=== PATIENT | male | born 1960 | race Caucasian/White ===

== ENCOUNTER 2021-10-24 06:03 | Observation (INO) | payer OTHER ==
--- NOTE | 2021-10-19 13:20 | RAD REPORT ---
EXAM DESCRIPTION: RAD - Chest Pa And Lat (2 Views) - 10/19/2021 1:12 pm CLINICAL HISTORY: Pre op pending hernia surgery COMPARISON: None TECHNIQUE: Frontal and lateral views of the chest were obtained. FINDINGS: The lungs are clear of focal mass or consolidation. Mildly prominent interstitial pattern is seen believed to be baseline for the patient. Heart size is normal and central vasculature is wi thin normal limits. No pleural effusion or pneumothorax seen. Thoracic spine degenerative changes a re present. There are multiple old posterior left rib fractures. No aortic abnormality. IMPRESSION: No acute cardiopulmonary process.
[2021-10-19 14:36] LABS: Absolute Lymphocytes (CBC) 1.4 K/uL (0.7-4.9); Lymphocytes % 22.8 % (15.3-44.8); MCV 90.5 fL (80-100); MPV 7.7 fL (7.6-11.3); RBC Red Blood Cell Count 4.31 M/uL (4.33-5.43)
[2021-10-19 14:51] LABS: Potassium 3.3 mmol/L (3.5-5.1)
[2021-10-19 15:01] LABS: SARS-CoV-2 Antigen Rapid Res Negative (Negative)
--- NOTE | 2021-10-23 08:28 | EKG ---
Test Date: 2021-10-19 Test Time: 12:56:06 Typing Section Chief: LEEANNA MEASUREMENT RESULTS: Intervals: Rate: 77 TX: 174 QRSD: 102 QT: 376 QTc: 425 [place]: P: 30 TX: 174 QRS: -33 T: 41 INTERPRETIVE STATEMENTS: Normal sinus rhythm Left axis deviation Cannot rule out Anterior infarct, age undetermined Abnormal ECG No previous ECG available for comparison Electronically Signed On 10-23-21 08:13:09 CDT by Kareem Fitzgerald
[2021-10-24] MEDS ORDERED: Ringers Lactate 1,000 ML IV ONE (06:15)
[2021-10-24] MEDS ORDERED: FENTANYL CITR 100 MCG/2 ML ONE ×2 (07:05→09:06)
[2021-10-24] MEDS ORDERED: propofoL 200 MG/20 ML VIAL IV ONE (07:05)
[2021-10-24] MEDS ORDERED: KETOROLAC 30 MG/ML INJ ONE (07:06)
[2021-10-24] MEDS ORDERED: LIDOCAINE 2% MPF 5 ML VIAL ONE (07:06)
[2021-10-24] MEDS ORDERED: ROCURONIUM 50 MG/5 ML VIAL IV ONE (07:06)
[2021-10-24] MEDS ORDERED: ONDANSETRON 4 MG/2 ML VIAL ONE (07:06)
[2021-10-24] MEDS ORDERED: dexAMETHasone 10 MG/ML VIAL ONE (07:06)
[2021-10-24] MEDS ORDERED: MIDAZOLAM HCL 2 MG/2 ML INJ ONE (07:06)
[2021-10-24] MEDS ORDERED: ACETAMINOPHEN 500 MG TAB ONE (07:28)
[2021-10-24] MEDS: CEFAZOLIN SODIUM 1 GM/VIAL ONE ×2 (07:38→07:45)
[2021-10-24] MEDS ORDERED: GLYCOPYRROLATE 0.2 MG/ML SYR ONE ×2 (08:33→08:34)
[2021-10-24] MEDS ORDERED: BUPIVACAINE 0.25% PF 10 ML VIAL ONE (09:06)
--- NOTE | 2021-10-24 09:16 | P.BOP ---
Preoperative diagnosis: incisional multiple incarcerated ventral hernias, Postoperative diagnosis: same plus extensive intrabdominal adhesions Primary procedure: 1. Laparoscopic repair multiple incisional mult. incarcerated ventral herni Secondary procedure: with mesh Other procedure(s): 2. Extensive laparoscopic Lysis of adhesions Grinder Set Up Operator External: ELAINA CORREA (BODY MASKER) Estimated blood loss: <20cc Specimen: multiple hernias Findings: epigastric-ventral, mid-ventral and lower ventral hernias Anesthesia: General Complications: None Implants: ventralight ST with echo PS [id number] Transferred to: Recovery Room Condition: Good
[2021-10-24] MEDS ORDERED: HYDROCODONE/APAP 5/325 MG TAB PO PRN (10:26)
[2021-10-24] MEDS ORDERED: SODIUM CHLORIDE 0.9% 10ML INJ IV PRN (10:26)
[2021-10-24] MEDS ORDERED: ONDANSETRON 4 MG/2 ML VIAL IV PRN (10:26)
[2021-10-24] MEDS: HYDROMORPHONE HCL 1 MG/ML INJ IV PRN ×4 (10:48→20:08)
[2021-10-24] MEDS: NA CHLORIDE 0.9% 1,000 ML IV SCH ×2 (11:00→13:10)
[2021-10-24 12:59] VITALS: BMI 32.2
--- OUTSIDE RECORDS SUMMARY | 2021-10-24 13:03 | XMS REPORT | Continuity of Care Document ---
:1960 Author Organization [facility] t Address [address] [place] [address] Care Team Providers Name Role Phone Fay Frye MD Primary Care Physician FAY FRYE Attending Clinician Unavailable Fay Frye MD Attending Clinician Doctor Unassigned, [place] Attending Clinician Unavailable Faizan Walker DO Attending Clinician Jef Selby MD Attending Clinician JEF SELBY Attending Clinician Unavailable [facility] Attending Clinician Unavailable Basil Vance Attending Clinician DENISE LEVI Attending Clinician Unavailable Denise Levi MD Attending Clinician Vale Vásquez MD Attending Clinician Mark Carballo MD Attending Clinician MARK CARBALLO Attending Clinician Unavailable Omayra Salazar PhD Attending Clinician ROEL BARROS Attending Clinician Unavailable Mark Carballo MD Admitting Clinician MARK CARBALLO Admitting Clinician Unavailable ROEL BARROS Admitting Clinician Unavailable Payers Payer Name Policy Type Policy Number Effective Date Expiration Date S ource Problems Condition Condition Condition Status Onset Resolution Last Treating Co mments Source Name Details Category Date Date Treatment Clinician Date Multiple Multiple Disease Active [facility] [place] Morbid Morbid Disease Active [facility] obesity obesity 4-06 [place] Me dical of of Branch 40.0-49.9 40.0-49.9 Morbid Morbid Disease Active [facility] obesity obesity 4-06 [place] with body [place] mass index 00 [place] of of Branch 40.0-49.9 40.0-49.9 Essential Essential Disease Active 2018-03 Uni vers hypertensi hypertensi 03-15 it y of on on 00:00: [place] [facility] Bariatric Bariatric Disease Active 2018-03 Uni vers surgery surgery 03-15 ity of status status 00:00: [place] [facility] No known No known Disease [facility] active [facility] problems problems of Medicin e Allergies, Adverse Reactions, Alerts Allergy Allergy Status Severity Reaction(s) Onset Inactive Treating Comm ents Source Name Type Date Date Clinician NO KNOWN Drug Active [facility] ALLERGIE Class ity of [facility] Social History Social Habit Start Date Stop Date Quantity Comments Source Alcohol intake [facility] History [facility] ge of Alcohol Binge Medicine Exposure to Not sure [facility] SARS-CoV-2 (event) Medica l Branch Tobacco use and 2019-06-14 2019-06-14 Never used [facility] exposure 00:00:00 00:00:00 Medical Branch History [facility] 2018-10-01 2018-10-01 5 [facility] ge of Alcohol Frequency 00:00:00 00:00:00 Medicin e History [facility] 2018-10-01 2018-10-01 1 [facility] ge of Alcohol Std Drinks 00:00:00 00:00:00 Medici ne Sex [birth year] [facility] 00:00:00 00:00:00 Medical Branch Smoking Status Start Date Stop Date Source Never smoker [facility] o f Medicine Unknown if ever smoked [facility] Medications Ordered Filled Start Stop Current Ordering Indication Dosage Frequency Signature Comments Components Source Medication Medication Date Date Medication? Clinician (SIG) Name Name HYDROcodone Yes [id number] 1{tbl} Take 1 Univers -acetaminop 4-20 tablet by ity of hen (NORCO) 00:00: mouth [place] 5-325 mg 00 every Medical tablet evening. Branch ibuprofen 2020-0 Yes [id number] 800mg Take 1 [facility] 800 mg 4-20 tablet by ity of tablet 00:00: mouth [place] 00 every 8 Medical (eight) Branch hours as needed for Pain (scale 1-3) or Pain (scale 4-6). HYDROcodone 2020-0 Yes [id number] 1{tbl} Take 1 Univers -acetaminop 4-20 tablet by ity of hen (NORCO) 00:00: mouth [place] 5-325 mg 00 every Medical tablet evening. Branch ibuprofen 2020-0 Yes [id number] 800mg Take 1 [facility] 800 mg 4-20 tablet by ity of tablet 00:00: mouth [place] 00 every 8 Medical (eight) Branch hours as needed for Pain (scale 1-3) or Pain (scale 4-6). HYDROcodone 2020-0 Yes [id number] 1{tbl} Take 1 Univers -acetaminop 4-20 tablet by ity of hen (NORCO) 00:00: mouth [place] 5-325 mg 00 every Medical tablet evening. Branch ibuprofen 2020-0 Yes [id number] 800mg Take 1 [facility] 800 mg 4-20 tablet by ity of tablet 00:00: mouth [place] 00 every 8 Medical (eight) Branch hours as needed for Pain (scale 1-3) or Pain (scale 4-6). HYDROcodone 2020-0 Yes [id number] 1{tbl} Take 1 Univers -acetaminop 4-20 tablet by ity of hen (NORCO) 00:00: mouth [place] 5-325 mg 00 every Medical tablet evening. Branch ibuprofen 2020-0 Yes [id number] 800mg Take 1 [facility] 800 mg 4-20 tablet by ity of tablet 00:00: mouth [place] 00 every 8 Medical (eight) Branch hours as needed for Pain (scale 1-3) or Pain (scale 4-6). HYDROcodone 2020-0 Yes [id number] 1{tbl} Take 1 Univers -acetaminop 4-20 tablet by ity of hen (NORCO) 00:00: mouth [place] 5-325 mg 00 every Medical tablet evening. Branch ibuprofen 2020-0 Yes [id number] 800mg Take 1 [facility] 800 mg 4-20 tablet by ity of tablet 00:00: mouth [place] 00 every 8 Medical (eight) Branch hours as needed for Pain (scale 1-3) or Pain (scale 4-6). HYDROcodone 2020-0 Yes [id number] 1{tbl} Take 1 Univers -acetaminop 4-20 tablet by ity of hen (NORCO) 00:00: mouth [place] 5-325 mg 00 every Medical tablet evening. Branch ibuprofen 2020-0 Yes [id number] 800mg Take 1 [facility] 800 mg 4-20 tablet by ity of tablet 00:00: mouth [place] 00 every 8 Medical (eight) Branch hours as needed for Pain (scale 1-3) or Pain (scale 4-6). HYDROcodone 2020-0 Yes [id number] 1{tbl} Take 1 Univers -acetaminop 4-20 tablet by ity of hen (NORCO) 00:00: mouth [place] 5-325 mg 00 every Medical tablet evening. Branch ibuprofen 2020-0 Yes [id number] 800mg Take 1 [facility] 800 mg 4-20 tablet by ity of tablet 00:00: mouth [place] 00 every 8 Medical (eight) Branch hours as needed for Pain (scale 1-3) or Pain (scale 4-6). HYDROcodone 2020-0 Yes [id number] 1{tbl} Take 1 Univers -acetaminop 4-20 tablet by ity of hen (NORCO) 00:00: mouth [place] 5-325 mg 00 every Medical tablet evening. Branch ibuprofen 2020-0 Yes [id number] 800mg Take 1 Univers 800 mg 4-20 tablet by ity of tablet 00:00: mouth [place] 00 every 8 Medical (eight) Branch hours as needed for Pain (scale 1-3) or Pain (scale 4-6). HYDROcodone 2020-0 Yes [id number] 1{tbl} Take 1 Univers -acetaminop 4-20 tablet by ity of hen (NORCO) 00:00: mouth [place] 5-325 mg 00 every Medical tablet evening. Branch ibuprofen 2020-0 Yes [id number] 800mg Take 1 [facility] 800 mg 4-20 tablet by ity of tablet 00:00: mouth [place] 00 every 8 Medical (eight) Branch hours as needed for Pain (scale 1-3) or Pain (scale 4-6). HYDROcodone 2020-0 Yes [id number] 1{tbl} Take 1 Univers -acetaminop 4-20 tablet by ity of hen (NORCO) 00:00: mouth [place] 5-325 mg 00 every Medical tablet evening. Branch ibuprofen 2020-0 Yes [id number] 800mg Take 1 [facility] 800 mg 4-20 tablet by ity of tablet 00:00: mouth [place] 00 every 8 Medical (eight) Branch hours as needed for Pain (scale 1-3) or Pain (scale 4-6). HYDROcodone 2020-0 Yes [id number] 1{tbl} Take 1 Univers -acetaminop 4-20 tablet by ity of hen (NORCO) 00:00: mouth [place] 5-325 mg 00 every Medical tablet evening. Branch ibuprofen 2020-0 Yes [id number] 800mg Take 1 [facility] 800 mg 4-20 tablet by ity of tablet 00:00: mouth [place] 00 every 8 Medical (eight) Branch hours as needed for Pain (scale 1-3) or Pain (scale 4-6). HYDROcodone 2020-0 Yes [id number] 1{tbl} Take 1 Univers -acetaminop 4-20 tablet by ity of hen (NORCO) 00:00: mouth [place] 5-325 mg 00 every Medical tablet evening. Branch ibuprofen 2020-0 Yes [id number] 800mg Take 1 [facility] 800 mg 4-20 tablet by ity of tablet 00:00: mouth [place] 00 every 8 Medical (eight) Branch hours as needed for Pain (scale 1-3) or Pain (scale 4-6). HYDROcodone 2020-0 Yes [id number] 1{tbl} Take 1 Univers -acetaminop 4-20 tablet by ity of hen (NORCO) 00:00: mouth [place] 5-325 mg 00 every Medical tablet evening. Branch ibuprofen 2020-0 Yes [id number] 800mg Take 1 [facility] 800 mg 4-20 tablet by ity of tablet 00:00: mouth [place] 00 every 8 Medical (eight) Branch hours as needed for Pain (scale 1-3) or Pain (scale 4-6). HYDROcodone 2020-0 Yes [id number] 1{tbl} Take 1 Univers -acetaminop 4-20 tablet by ity of hen (NORCO) 00:00: mouth [place] 5-325 mg 00 every Medical tablet evening. Branch ibuprofen 2020-0 Yes [id number] 800mg Take 1 [facility] 800 mg 4-20 tablet by ity of tablet 00:00: mouth [place] 00 every 8 Medical (eight) Branch hours as needed for Pain (scale 1-3) or Pain (scale 4-6). HYDROcodone 2020-0 Yes [id number] 1{tbl} Take 1 Univers -acetaminop 4-20 tablet by ity of hen (NORCO) 00:00: mouth [place] 5-325 mg 00 every Medical tablet evening. Branch ibuprofen 2020-0 Yes [id number] 800mg Take 1 [facility] 800 mg 4-20 tablet by ity of tablet 00:00: mouth [place] 00 every 8 Medical (eight) Branch hours as needed for Pain (scale 1-3) or Pain (scale 4-6). HYDROcodone 2020-0 Yes [id number] 1{tbl} Take 1 Univers -acetaminop 4-20 tablet by ity of hen (NORCO) 00:00: mouth [place] 5-325 mg 00 every Medical tablet evening. Branch ibuprofen 2020-0 Yes [id number] 800mg Take 1 Univers 800 mg 4-20 tablet by ity of tablet 00:00: mouth [place] 00 every 8 Medical (eight) Branch hours as needed for Pain (scale 1-3) or Pain (scale 4-6). HYDROcodone 2020-0 Yes [id number] 1{tbl} Take 1 Univers -acetaminop 4-20 tablet by ity of hen (NORCO) 00:00: mouth [place] 5-325 mg 00 every Medical tablet evening. Branch ibuprofen 2020-0 Yes [id number] 800mg Take 1 [facility] 800 mg 4-20 tablet by ity of tablet 00:00: mouth [place] 00 every 8 Medical (eight) Branch hours as needed for Pain (scale 1-3) or Pain (scale 4-6). HYDROcodone 2020-0 Yes [id number] 1{tbl} Take 1 Univers -acetaminop 4-20 tablet by ity of hen (NORCO) 00:00: mouth [place] 5-325 mg 00 every Medical tablet evening. Branch ibuprofen 2020-0 Yes [id number] 800mg Take 1 [facility] 800 mg 4-20 tablet by ity of tablet 00:00: mouth [place] 00 every 8 Medical (eight) Branch hours as needed for Pain (scale 1-3) or Pain (scale 4-6). HYDROcodone 2020-0 Yes [id number] 1{tbl} Take 1 Univers -acetaminop 4-20 tablet by ity of hen (NORCO) 00:00: mouth [place] 5-325 mg 00 every Medical tablet evening. Branch ibuprofen 2020-0 Yes [id number] 800mg Take 1 Univers 800 mg 4-20 tablet by ity of tablet 00:00: mouth [place] 00 every 8 Medical (eight) Branch hours as needed for Pain (scale 1-3) or Pain (scale 4-6). HYDROcodone 2020-0 Yes [id number] 1{tbl} Take 1 Univers -acetaminop 4-20 tablet by ity of hen (NORCO) 00:00: mouth [place] 5-325 mg 00 every Medical tablet evening. Branch ibuprofen 2020-0 Yes [id number] 800mg Take 1 [facility] 800 mg 4-20 tablet by ity of tablet 00:00: mouth [place] 00 every 8 Medical (eight) Branch hours as needed for Pain (scale 1-3) or Pain (scale 4-6). HYDROcodone 2020-0 Yes [id number] 1{tbl} Take 1 Univers -acetaminop 4-20 tablet by ity of hen (NORCO) 00:00: mouth [place] 5-325 mg 00 every Medical tablet evening. Branch ibuprofen 2020-0 Yes [id number] 800mg Take 1 Univers 800 mg 4-20 tablet by ity of tablet 00:00: mouth [place] 00 every 8 Medical (eight) Branch hours as needed for Pain (scale 1-3) or Pain (scale 4-6). HYDROcodone 2020-0 Yes [id number] 1{tbl} Take 1 Univers -acetaminop 4-20 tablet by ity of hen (NORCO) 00:00: mouth [place] 5-325 mg 00 every Medical tablet evening. Branch ibuprofen 2020-0 Yes [id number] 800mg Take 1 Univers 800 mg 4-20 tablet by ity of tablet 00:00: mouth [place] 00 every 8 Medical (eight) Branch hours as needed for Pain (scale 1-3) or Pain (scale 4-6). HYDROcodone 2020-0 Yes [id number] 1{tbl} Take 1 Univers -acetaminop 4-20 tablet by ity of hen (NORCO) 00:00: mouth [place] 5-325 mg 00 every Medical tablet evening. Branch ibuprofen 2020-0 Yes [id number] 800mg Take 1 Univers 800 mg 4-20 tablet by ity of tablet 00:00: mouth [place] 00 every 8 Medical (eight) Branch hours as needed for Pain (scale 1-3) or Pain (scale 4-6). HYDROcodone 2020-0 Yes [id number] 1{tbl} Take 1 Univers -acetaminop 4-20 tablet by ity of hen (NORCO) 00:00: mouth [place] 5-325 mg 00 every Medical tablet evening. Branch ibuprofen 2019-0 Yes [id number] 800mg Take 1 Univers 800 mg 4-20 tablet by ity of tablet 00:00: mouth [place] 00 every 8 Medical (eight) Branch hours as needed for Pain (scale 1-3) or Pain (scale 4-6). HYDROcodone 2020-0 Yes [id number] 1{tbl} Take 1 Univers -acetaminop 4-20 tablet by ity of hen (NORCO) 00:00: mouth [place] 5-325 mg 00 every Medical tablet evening. Branch ibuprofen 2019-0 Yes [id number] 800mg Take 1 Univers 800 mg 4-20 tablet by ity of tablet 00:00: mouth [place] 00 every 8 Medical (eight) Branch hours as needed for Pain (scale 1-3) or Pain (scale 4-6). docusate 2020-0 2020- No [id number] 100mg Take 1 Univers 100 mg 4- 04-24 capsule by ity of capsule 00:00: 04:59 mouth [place] 00 :00 daily for Medical 14 days. Branch docusate 2020-0 2020- No [id number] 100mg Take 1 Univers 100 mg 4- 04-24 capsule by ity of capsule 00:00: 04:59 mouth [place] 00 :00 daily for Medical 14 days. Branch docusate 2020-0 2020- No [id number] 100mg Take 1 Univers 100 mg 4-09 04-24 capsule by ity of capsule 00:00: 04:59 mouth [place] 00 :00 daily for Medical 14 days. Branch docusate 2020-0 2020- No [id number] 100mg Take 1 Univers 100 mg 4- 04-24 capsule by ity of capsule 00:00: 04:59 mouth [place] 00 :00 daily for Medical 14 days. Branch loratadine 0 Yes 10mg Take 10 mg U nivers 10 mg 4-08 by mouth. ity of tablet 18:41: [place] 46 Medical Branch aspirin 2020-0 Yes 81mg Take 81 mg Univ ers (ASPIRIN 4-08 by mouth ity of LOW DOSE) 18:41: daily. [place] 81 mg EC 46 Medical tablet Branch loratadine 2020-0 Yes 10mg Take 10 mg U nivers 10 mg 4-08 by mouth. ity of tablet 18:41: [place] [address] Medical Branch aspirin 2020-0 Yes 81mg Take 81 mg Univ ers (ASPIRIN 4-08 by mouth ity of LOW DOSE) 18:41: daily. [place] 81 mg EC 46 Medical tablet Branch loratadine 2020-0 Yes 10mg Take 10 mg U nivers 10 mg 4-08 by mouth. ity of tablet 18:41: [address] Branch aspirin 2020-0 Yes 81mg Take 81 mg Univ ers (ASPIRIN 4-08 by mouth ity of LOW DOSE) 18:41: daily. [place] 81 mg EC 46 Medical tablet Branch loratadine 2020-0 Yes 10mg Take 10 mg U nivers 10 mg 4-08 by mouth. ity of tablet 18:41: [address] Branch aspirin 2020-0 Yes 81mg Take 81 mg Univ ers (ASPIRIN 4-08 by mouth ity of LOW DOSE) 18:41: daily. [place] 81 mg EC 46 Medical tablet Branch loratadine 2020-0 Yes 10mg Take 10 mg U nivers 10 mg 4-08 by mouth. ity of tablet 18:41: [address] Branch aspirin 2020-0 Yes 81mg Take 81 mg Univ ers (ASPIRIN 4-08 by mouth ity of LOW DOSE) 18:41: daily. [place] 81 mg EC 46 Medical tablet Branch loratadine 2020-0 Yes 10mg Take 10 mg U nivers 10 mg 4-08 by mouth. ity of tablet 18:41: [address] Branch aspirin 2020-0 Yes 81mg Take 81 mg Univ ers (ASPIRIN 4-08 by mouth ity of LOW DOSE) 18:41: daily. [place] 81 mg EC 46 Medical tablet Branch loratadine 2020-0 Yes 10mg Take 10 mg U nivers 10 mg 4-08 by mouth. ity of tablet 18:41: [address] aspirin 2020-0 Yes 81mg Take 81 mg Univ ers (ASPIRIN 4-08 by mouth ity of LOW DOSE) 18:41: daily. [place] 81 mg EC 46 Medical tablet Branch loratadine 2020-0 Yes 10mg Take 10 mg U nivers 10 mg 4-08 by mouth. ity of tablet 18:41: [place] 46 Medical Branch aspirin 2020-0 Yes 81mg Take 81 mg Univ ers (ASPIRIN 4-08 by mouth ity of LOW DOSE) 18:41: daily. [place] 81 mg EC 46 Medical tablet Branch loratadine 2020-0 Yes 10mg Take 10 mg U nivers 10 mg 4-08 by mouth. ity of tablet 18:41: [place] [address] Medical Branch aspirin 2020-0 Yes 81mg Take 81 mg Univ ers (ASPIRIN 4-08 by mouth ity of LOW DOSE) 18:41: daily. [place] 81 mg EC 46 Medical tablet Branch loratadine 2020-0 Yes 10mg Take 10 mg U nivers 10 mg 4-08 by mouth. ity of tablet 18:41: [place] [address] Medical Branch aspirin 2020-0 Yes 81mg Take 81 mg Univ ers (ASPIRIN 4-08 by mouth ity of LOW DOSE) 18:41: daily. [place] 81 mg EC 46 Medical tablet Branch loratadine 2020-0 Yes 10mg Take 10 mg U nivers 10 mg 4-08 by mouth. ity of tablet 18:41: [place] [address] Medical Branch aspirin 2020-0 Yes 81mg Take 81 mg Univ ers (ASPIRIN 4-08 by mouth ity of LOW DOSE) 18:41: daily. [place] 81 mg EC 46 Medical tablet Branch loratadine 2020-0 Yes 10mg Take 10 mg U nivers 10 mg 4-08 by mouth. ity of tablet 18:41: [address] Branch aspirin 2020-0 Yes 81mg Take 81 mg Univ ers (ASPIRIN 4-08 by mouth ity of LOW DOSE) 18:41: daily. [place] 81 mg EC 46 Medical tablet Branch loratadine 2020-0 Yes 10mg Take 10 mg U nivers 10 mg 4-08 by mouth. ity of tablet 18:41: [place] [address] Medical Branch aspirin 2020-0 Yes 81mg Take 81 mg Univ ers (ASPIRIN 4-08 by mouth ity of LOW DOSE) 18:41: daily. [place] 81 mg EC 46 Medical tablet Branch loratadine 2020-0 Yes 10mg Take 10 mg U nivers 10 mg 4-08 by mouth. ity of tablet 18:41: [place] [address] Medical Branch aspirin 2020-0 Yes 81mg Take 81 mg Univ ers (ASPIRIN 4-08 by mouth ity of LOW DOSE) 18:41: daily. [place] 81 mg EC 46 Medical tablet Branch loratadine 2020-0 Yes 10mg Take 10 mg U nivers 10 mg 4-08 by mouth. ity of tablet 18:41: [place] [address] Medical Branch aspirin 2020-0 Yes 81mg Take 81 mg Univ ers (ASPIRIN 4-08 by mouth ity of LOW DOSE) 18:41: daily. [place] 81 mg EC 46 Medical tablet Branch loratadine 2020-0 Yes 10mg Take 10 mg U nivers 10 mg 4-08 by mouth. ity of tablet 18:41: [place] [address] Medical Branch aspirin 2020-0 Yes 81mg Take 81 mg Univ ers (ASPIRIN 4-08 by mouth ity of LOW DOSE) 18:41: daily. [place] 81 mg EC 46 Medical tablet Branch loratadine 2020-0 Yes 10mg Take 10 mg U nivers 10 mg 4-08 by mouth. ity of tablet 18:41: [place] [address] Medical Branch aspirin 2020-0 Yes 81mg Take 81 mg Univ ers (ASPIRIN 4-08 by mouth ity of LOW DOSE) 18:41: daily. [place] 81 mg EC 46 Medical tablet Branch loratadine 2020-0 Yes 10mg Take 10 mg U nivers 10 mg 4-08 by mouth. ity of tablet 18:41: [place] [address] Medical Branch aspirin 2020-0 Yes 81mg Take 81 mg Univ ers (ASPIRIN 4-08 by mouth ity of LOW DOSE) 18:41: daily. [place] 81 mg EC 46 Medical tablet Branch loratadine 2020-0 Yes 10mg Take 10 mg U nivers 10 mg 4-08 by mouth. ity of tablet 18:41: [address] Branch aspirin 2020-0 Yes 81mg Take 81 mg Univ ers (ASPIRIN 4-08 by mouth ity of LOW DOSE) 18:41: daily. [place] 81 mg EC 46 Medical tablet Branch loratadine 2020-0 Yes 10mg Take 10 mg U nivers 10 mg 4-08 by mouth. ity of tablet 18:41: [place] [address] Medical Branch aspirin 2020-0 Yes 81mg Take 81 mg Univ ers (ASPIRIN 4-08 by mouth ity of LOW DOSE) 18:41: daily. [place] 81 mg EC 46 Medical tablet Branch loratadine 2020-0 Yes 10mg Take 10 mg U nivers 10 mg 4-08 by mouth. ity of tablet 18:41: [place] [address] Medical Branch loratadine 2020-0 Yes 10mg Take 10 mg U nivers 10 mg 4-08 by mouth. ity of tablet 18:41: [place] 46 Medical Branch aspirin 2020-0 Yes 81mg Take 81 mg Univ ers (ASPIRIN 4-08 by mouth ity of LOW DOSE) 18:41: daily. [place] 81 mg EC 46 Medical tablet Branch loratadine 2020-0 Yes 10mg Take 10 mg U nivers 10 mg 4-08 by mouth. ity of tablet 18:41: [place] [address] Medical Branch aspirin 2020-0 Yes 81mg Take 81 mg Univ ers (ASPIRIN 4-08 by mouth ity of LOW DOSE) 18:41: daily. [place] 81 mg EC 46 Medical tablet Branch loratadine 2020-0 Yes 10mg Take 10 mg U nivers 10 mg 4-08 by mouth. ity of tablet 18:41: [place] [address] Medical Branch aspirin 2020-0 Yes 81mg Take 81 mg Univ ers (ASPIRIN 4-08 by mouth ity of LOW DOSE) 18:41: daily. [place] 81 mg EC 46 Medical tablet Branch aspirin 2020-0 Yes 81mg Take 81 mg Univ ers (ASPIRIN 4-08 by mouth ity of LOW DOSE) 18:41: daily. [place] 81 mg EC 46 Medical tablet Branch loratadine 2020-0 Yes 10mg Take 10 mg U nivers 10 mg 4-08 by mouth. ity of tablet 18:41: [place] [address] Medical Branch aspirin 2020-0 Yes 81mg Take 81 mg Univ ers (ASPIRIN 4-08 by mouth ity of LOW DOSE) 18:41: daily. [place] 81 mg EC 46 Medical tablet Branch loratadine 2020-0 Yes 10mg Take 10 mg U nivers 10 mg 4-08 by mouth. ity of tablet 18:41: [place] [address] Medical Branch aspirin 2020-0 Yes 81mg Take 81 mg Univ ers (ASPIRIN 4-08 by mouth ity of LOW DOSE) 18:41: daily. [place] 81 mg EC 46 Medical tablet Branch loratadine 2020-0 Yes 10mg Take 10 mg U nivers 10 mg 4-08 by mouth. ity of tablet 18:41: [place] [address] Medical Branch aspirin 2020-0 Yes 81mg Take 81 mg Univ ers (ASPIRIN 4-08 by mouth ity of LOW DOSE) 18:41: daily. [place] 81 mg EC 46 Medical tablet Branch loratadine 2020-0 Yes 10mg Take 10 mg U nivers 10 mg 4-08 by mouth. ity of tablet 18:41: [place] [address] Medical Branch aspirin 2020-0 Yes 81mg Take 81 mg Univ ers (ASPIRIN 4-08 by mouth ity of LOW DOSE) 18:41: daily. [place] 81 mg EC 46 Medical tablet Branch loratadine 2020-0 Yes 10mg Take 10 mg U nivers 10 mg 4-08 by mouth. ity of tablet 18:41: [address] aspirin 2020-0 Yes 81mg Take 81 mg Univ ers (ASPIRIN 4-08 by mouth ity of LOW DOSE) 18:41: daily. [place] 81 mg EC 46 Medical tablet Branch loratadine 2020-0 Yes 10mg Take 10 mg U nivers 10 mg 4-08 by mouth. ity of tablet 18:41: [address] aspirin 2020-0 Yes 81mg Take 81 mg Univ ers (ASPIRIN 4-08 by mouth ity of LOW DOSE) 18:41: daily. [place] 81 mg EC 46 [facility] tablet [place] pneumococca 2020-0 2020- No .5mL 0.5 mL, Un abdulkadir l vac 4-08 04-08 Intramuscu ity of polyvalent 18:00: 18:22 lar, ONCE, [place] (PNEUMOVAX- 00 :00 1 dose, Medic al 23) Fri06/16/19 Branch injection at 1300, 0.5 mL Routine benzonatate 2020-0 Yes 100mg 100 mg, Un abdulkadir (TESSALON 4-08 Oral, ity of PERLES) 13:55: TIDPRBuddy, [place] capsule 100 17 Starting Medi alex mg Fri06/16/19 Branch at 0855, Until Discontinu ed, Routine, Cough loratadine 2020-0 Yes 10mg Take 10 mg U nivers 10 mg 4-08 by mouth. ity of tablet 13:41: [address] aspirin 2020-0 Yes 81mg Take 81 mg Univ ers (ASPIRIN 4-08 by mouth ity of LOW DOSE) 13:41: daily. [place] 81 mg EC 46 Medical tablet Branch loratadine 2020-0 Yes 10mg Take 10 mg U nivers 10 mg 4-08 by mouth. ity of tablet 13:41: [address] aspirin 2020-0 Yes 81mg Take 81 mg Univ ers (ASPIRIN 4-08 by mouth ity of LOW DOSE) 13:41: daily. [place] 81 mg EC 46 Medical tablet Branch loratadine 2020-0 Yes 10mg Take 10 mg U nivers 10 mg 4-08 by mouth. ity of tablet 13:41: [place] 46 Medical Branch aspirin 2020-0 Yes 81mg Take 81 mg Univ ers (ASPIRIN 4-08 by mouth ity of LOW DOSE) 13:41: daily. [place] 81 mg EC 46 Medical tablet Branch loratadine 2020-0 Yes 10mg Take 10 mg U nivers 10 mg 4-08 by mouth. ity of tablet 13:41: [place] 46 Medical Branch aspirin 2020-0 Yes 81mg Take 81 mg Univ ers (ASPIRIN 4-08 by mouth ity of LOW DOSE) 13:41: daily. [place] 81 mg EC 46 Medical tablet Branch HYDROcodone 2020-0 Yes [id number] 1{tbl} Take 1 Univers -acetaminop 4-08 tablet by ity of hen 5-325 00:00: mouth [place] mg tablet 00 every 6 Medical (six) Branch hours as needed for Pain (scale 4-6). cyclobenzap 2020-0 Yes [id number] 10mg Take 1 Univers rine 10 mg 4-08 tablet by ity of tablet 00:00: mouth 3 [place] 00 (three) Medical times Branch daily as needed for Muscle Spasms. ibuprofen 2020-0 Yes [id number] 800mg Take 1 Univers 800 mg 4-08 tablet by ity of tablet 00:00: mouth [place] 00 every 6 Medical (six) Branch hours as needed for Pain (scale 1-3). benzonatate 2020-0 Yes [id number] 100mg Take 1 Univers 100 mg 4-08 capsule by ity of capsule 00:00: mouth 3 [place] 00 (three) Medical times Branch daily as needed for Cough. HYDROcodone 2020-0 Yes [id number] 1{tbl} Take 1 Univers -acetaminop 4-08 tablet by ity of hen 5-325 00:00: mouth [place] mg tablet 00 every 6 Medical (six) Branch hours as needed for Pain (scale 4-6). cyclobenzap 2020-0 Yes [id number] 10mg Take 1 Univers rine 10 mg 4-08 tablet by ity of tablet 00:00: mouth 3 [place] 00 (three) Medical times Branch daily as needed for Muscle Spasms. ibuprofen 2020-0 Yes [id number] 800mg Take 1 [facility] 800 mg 4-08 tablet by ity of tablet 00:00: mouth [place] 00 every 6 Medical (six) Branch hours as needed for Pain (scale 1-3). benzonatate 2020-0 Yes [id number] 100mg Take 1 Univers 100 mg 4-08 capsule by ity of capsule 00:00: mouth 3 [place] 00 (three) Medical times Branch daily as needed for Cough. HYDROcodone 2020-0 Yes [id number] 1{tbl} Take 1 [facility] -acetaminop 4-08 tablet by [facility] of hen 5-325 00:00: mouth [place] mg tablet 00 every 6 Medical (six) Branch hours as needed for Pain (scale 4-6). cyclobenzap 2020-0 Yes [id number] 10mg Take 1 [facility] rine 10 mg 4-08 tablet by ity of tablet 00:00: mouth 3 [place] 00 (three) Medical times Branch daily as needed for Muscle Spasms. ibuprofen 2020-0 Yes [id number] 800mg Take 1 [facility] 800 mg 4-08 tablet by ity of tablet 00:00: mouth [place] 00 every 6 Medical (six) Branch hours as needed for Pain (scale 1-3). benzonatate 2020-0 Yes [id number] 100mg Take 1 [facility] 100 mg 4-08 capsule by ity of capsule 00:00: mouth 3 [place] 00 (three) Medical times Branch daily as needed for Cough. HYDROcodone 2020-0 Yes [id number] 1{tbl} Take 1 [facility] -acetaminop 4-08 tablet by ity of hen 5-325 00:00: mouth [place] mg tablet 00 every 6 Medical (six) Branch hours as needed for Pain (scale 4-6). cyclobenzap 2020-0 Yes [id number] 10mg Take 1 [facility] rine 10 mg 4-08 tablet by ity of tablet 00:00: mouth 3 [place] 00 (three) Medical times Branch daily as needed for Muscle Spasms. ibuprofen 2020-0 Yes [id number] 800mg Take 1 [facility] 800 mg 4-08 tablet by ity of tablet 00:00: mouth [place] 00 every 6 Medical (six) Branch hours as needed for Pain (scale 1-3). benzonatate 2020-0 Yes [id number] 100mg Take 1 [facility] 100 mg 4-08 capsule by ity of capsule 00:00: mouth 3 [place] 00 (three) Medical times Branch daily as needed for Cough. HYDROcodone 2020-0 Yes [id number] 1{tbl} Take 1 [facility] -acetaminop 4-08 tablet by ity of hen 5-325 00:00: mouth [place] mg tablet 00 every 6 Medical (six) Branch hours as needed for Pain (scale 4-6). cyclobenzap 2020-0 Yes [id number] 10mg Take 1 [facility] rine 10 mg 4-08 tablet by ity of tablet 00:00: mouth 3 [place] 00 (three) Medical times Branch daily as needed for Muscle Spasms. ibuprofen 2020-0 Yes [id number] 800mg Take 1 [facility] 800 mg 4-08 tablet by ity of tablet 00:00: mouth [place] 00 every 6 Medical (six) Branch hours as needed for Pain (scale 1-3). benzonatate 2020-0 Yes [id number] 100mg Take 1 [facility] 100 mg 4-08 capsule by ity of capsule 00:00: mouth 3 [place] 00 (three) Medical times Branch daily as needed for Cough. HYDROcodone 2020-0 Yes [id number] 1{tbl} Take 1 [facility] -acetaminop 4-08 tablet by ity of hen 5-325 00:00: mouth [place] mg tablet 00 every 6 Medical (six) Branch hours as needed for Pain (scale 4-6). cyclobenzap 2020-0 Yes [id number] 10mg Take 1 [facility] rine 10 mg 4-08 tablet by ity of tablet 00:00: mouth 3 [place] 00 (three) Medical times Branch daily as needed for Muscle Spasms. ibuprofen 2020-0 Yes [id number] 800mg Take 1 [facility] 800 mg 4-08 tablet by it[facility] of tablet 00:00: mouth [place] 00 every 6 Medical (six) Branch hours as needed for Pain (scale 1-3). benzonatate 2020-0 Yes [id number] 100mg Take 1 [facility] 100 mg 4-08 capsule by it[facility] of capsule 00:00: mouth 3 [place] 00 (three) Medical times Branch daily as needed for Cough. HYDROcodone 2020-0 Yes [id number] 1{tbl} Take 1 [facility] -acetaminop 4-08 tablet by ity of hen 5-325 00:00: mouth [place] mg tablet 00 every 6 Medical (six) Branch hours as needed for Pain (scale 4-6). cyclobenzap 2020-0 Yes [id number] 10mg Take 1 [facility] rine 10 mg 4-08 tablet by ity of tablet 00:00: mouth 3 [place] 00 (three) Medical times Branch daily as needed for Muscle Spasms. ibuprofen 2020-0 Yes [id number] 800mg Take 1 [facility] 800 mg 4-08 tablet by ity of tablet 00:00: mouth [place] 00 every 6 Medical (six) Branch hours as needed for Pain (scale 1-3). benzonatate 2020-0 Yes [id number] 100mg Take 1 [facility] 100 mg 4-08 capsule by ity of capsule 00:00: mouth 3 [place] 00 (three) Medical times Branch daily as needed for Cough. HYDROcodone 2020-0 Yes [id number] 1{tbl} Take 1 [facility] -acetaminop 4-08 tablet by ity of hen 5-325 00:00: mouth [place] mg tablet 00 every 6 Medical (six) Branch hours as needed for Pain (scale 4-6). cyclobenzap 2020-0 Yes [id number] 10mg Take 1 [facility] rine 10 mg 4-08 tablet by ity of tablet 00:00: mouth 3 [place] 00 (three) Medical times Branch daily as needed for Muscle Spasms. ibuprofen 2020-0 Yes [id number] 800mg Take 1 [facility] 800 mg 4-08 tablet by ity of tablet 00:00: mouth [place] 00 every 6 Medical (six) Branch hours as needed for Pain (scale 1-3). benzonatate 2020-0 Yes [id number] 100mg Take 1 [facility] 100 mg 4-08 capsule by [facility]y of capsule 00:00: mouth 3 [place] 00 (three) Medical times Branch daily as needed for Cough. HYDROcodone 2020-0 Yes [id number] 1{tbl} Take 1 [facility] -acetaminop 4-08 tablet by ity of hen 5-325 00:00: mouth [place] mg tablet 00 every 6 Medical (six) Branch hours as needed for Pain (scale 4-6). cyclobenzap 2020-0 Yes [id number] 10mg Take 1 [facility] rine 10 mg 4-08 tablet by ity of tablet 00:00: mouth 3 [place] 00 (three) Medical times Branch daily as needed for Muscle Spasms. ibuprofen 2020-0 Yes [id number] 800mg Take 1 [facility] 800 mg 4-08 tablet by ity of tablet 00:00: mouth [place] 00 every 6 Medical (six) Branch hours as needed for Pain (scale 1-3). benzonatate 2020-0 Yes [id number] 100mg Take 1 [facility] 100 mg 4-08 capsule by ity of capsule 00:00: mouth 3 [place] 00 (three) Medical times Branch daily as needed for Cough. HYDROcodone 2020-0 Yes [id number] 1{tbl} Take 1 [facility] -acetaminop 4-08 tablet by [facility]y of hen 5-325 00:00: mouth [place] mg tablet 00 every 6 Medical (six) Branch hours as needed for Pain (scale 4-6). cyclobenzap 2020-0 Yes [id number] 10mg Take 1 [facility] rine 10 mg 4-08 tablet by ity of tablet 00:00: mouth 3 [place] 00 (three) Medical times Branch daily as needed for Muscle Spasms. ibuprofen 2020-0 Yes [id number] 800mg Take 1 [facility] 800 mg 4-08 tablet by [facility]y of tablet 00:00: mouth [place] 00 every 6 Medical (six) Branch hours as needed for Pain (scale 1-3). benzonatate 2020-0 Yes [id number] 100mg Take 1 [facility] 100 mg 4-08 capsule by [facility] of capsule 00:00: mouth 3 [place] 00 (three) Medical times Branch daily as needed for Cough. HYDROcodone 2020-0 Yes [id number] 1{tbl} Take 1 [facility] -acetaminop 4-08 tablet by ity of hen 5-325 00:00: mouth [place] mg tablet 00 every 6 Medical (six) Branch hours as needed for Pain (scale 4-6). cyclobenzap 2020-0 Yes [id number] 10mg Take 1 [facility] rine 10 mg 4-08 tablet by [facility]y of tablet 00:00: mouth 3 [place] 00 (three) Medical times Branch daily as needed for Muscle Spasms. ibuprofen 2020-0 Yes [id number] 800mg Take 1 [facility] 800 mg 4-08 tablet by ity of tablet 00:00: mouth [place] 00 every 6 Medical (six) Branch hours as needed for Pain (scale 1-3). benzonatate 2020-0 Yes [id number] 100mg Take 1 [facility] 100 mg 4-08 capsule by ity of capsule 00:00: mouth 3 [place] 00 (three) Medical times Branch daily as needed for Cough. HYDROcodone 2020-0 Yes [id number] 1{tbl} Take 1 [facility] -acetaminop 4-08 tablet by ity of hen 5-325 00:00: mouth [place] mg tablet 00 every 6 Medical (six) Branch hours as needed for Pain (scale 4-6). cyclobenzap 2020-0 Yes [id number] 10mg Take 1 [facility] rine 10 mg 4-08 tablet by ity of tablet 00:00: mouth 3 [place] 00 (three) Medical times Branch daily as needed for Muscle Spasms. ibuprofen 2020-0 Yes [id number] 800mg Take 1 [facility] 800 mg 4-08 tablet by ity of tablet 00:00: mouth [place] 00 every 6 Medical (six) Branch hours as needed for Pain (scale 1-3). benzonatate 2020-0 Yes [id number] 100mg Take 1 [facility] 100 mg 4-08 capsule by [facility] of capsule 00:00: mouth 3 [place] 00 (three) Medical times Branch daily as needed for Cough. HYDROcodone 2020-0 Yes [id number] 1{tbl} Take 1 [facility] -acetaminop 4-08 tablet by ity of hen 5-325 00:00: mouth [place] mg tablet 00 every 6 Medical (six) Branch hours as needed for Pain (scale 4-6). cyclobenzap 2020-0 Yes [id number] 10mg Take 1 [facility] rine 10 mg 4-08 tablet by ity of tablet 00:00: mouth 3 [place] 00 (three) Medical times Branch daily as needed for Muscle Spasms. ibuprofen 2020-0 Yes [id number] 800mg Take 1 [facility] 800 mg 4-08 tablet by ity of tablet 00:00: mouth [place] 00 every 6 Medical (six) Branch hours as needed for Pain (scale 1-3). benzonatate 2020-0 Yes [id number] 100mg Take 1 [facility] 100 mg 4-08 capsule by ity of capsule 00:00: mouth 3 [place] 00 (three) Medical times Branch daily as needed for Cough. HYDROcodone 2020-0 Yes [id number] 1{tbl} Take 1 [facility] -acetaminop 4-08 tablet by ity of hen 5-325 00:00: mouth [place] mg tablet 00 every 6 Medical (six) Branch hours as needed for Pain (scale 4-6). cyclobenzap 2020-0 Yes [id number] 10mg Take 1 [facility] rine 10 mg 4-08 tablet by ity of tablet 00:00: mouth 3 [place] 00 (three) Medical times Branch daily as needed for Muscle Spasms. ibuprofen 2020-0 Yes [id number] 800mg Take 1 [facility] 800 mg 4-08 tablet by ity of tablet 00:00: mouth [place] 00 every 6 Medical (six) Branch hours as needed for Pain (scale 1-3). benzonatate 2020-0 Yes [id number] 100mg Take 1 [facility] 100 mg 4-08 capsule by ity of capsule 00:00: mouth 3 [place] 00 (three) Medical times Branch daily as needed for Cough. HYDROcodone 2020-0 Yes [id number] 1{tbl} Take 1 [facility] -acetaminop 4-08 tablet by ity of hen 5-325 00:00: mouth [place] mg tablet 00 every 6 Medical (six) Branch hours as needed for Pain (scale 4-6). cyclobenzap 2020-0 Yes [id number] 10mg Take 1 [facility] rine 10 mg 4-08 tablet by ity of tablet 00:00: mouth 3 [place] 00 (three) Medical times Branch daily as needed for Muscle Spasms. ibuprofen 2020-0 Yes [id number] 800mg Take 1 [facility] 800 mg 4-08 tablet by ity of tablet 00:00: mouth [place] 00 every 6 Medical (six) Branch hours as needed for Pain (scale 1-3). benzonatate 2020-0 Yes [id number] 100mg Take 1 [facility] 100 mg 4-08 capsule by ity of capsule 00:00: mouth 3 [place] 00 (three) Medical times Branch daily as needed for Cough. HYDROcodone 2020-0 Yes [id number] 1{tbl} Take 1 [facility] -acetaminop 4-08 tablet by ity of hen 5-325 00:00: mouth [place] mg tablet 00 every 6 Medical (six) Branch hours as needed for Pain (scale 4-6). cyclobenzap 2020-0 Yes [id number] 10mg Take 1 [facility] rine 10 mg 4-08 tablet by ity of tablet 00:00: mouth 3 [place] 00 (three) Medical times Branch daily as needed for Muscle Spasms. ibuprofen 2020-0 Yes [id number] 800mg Take 1 [facility] 800 mg 4-08 tablet by ity of tablet 00:00: mouth [place] 00 every 6 Medical (six) Branch hours as needed for Pain (scale 1-3). benzonatate 2020-0 Yes [id number] 100mg Take 1 [facility] 100 mg 4-08 capsule by ity of capsule 00:00: mouth 3 [place] 00 (three) Medical times Branch daily as needed for Cough. HYDROcodone 2020-0 Yes [id number] 1{tbl} Take 1 [facility] -acetaminop 4-08 tablet by ity of hen 5-325 00:00: mouth [place] mg tablet 00 every 6 Medical (six) Branch hours as needed for Pain (scale 4-6). cyclobenzap 2020-0 Yes [id number] 10mg Take 1 [facility] rine 10 mg 4-08 tablet by ity of tablet 00:00: mouth 3 [place] 00 (three) Medical times Branch daily as needed for Muscle Spasms. ibuprofen 2020-0 Yes [id number] 800mg Take 1 [facility] 800 mg 4-08 tablet by ity of tablet 00:00: mouth [place] 00 every 6 Medical (six) Branch hours as needed for Pain (scale 1-3). benzonatate 2020-0 Yes [id number] 100mg Take 1 [facility] 100 mg 4-08 capsule by ity of capsule 00:00: mouth 3 [place] 00 (three) Medical times Branch daily as needed for Cough. HYDROcodone 2020-0 Yes [id number] 1{tbl} Take 1 [facility] -acetaminop 4-08 tablet by ity of hen 5-325 00:00: mouth [place] mg tablet 00 every 6 Medical (six) Branch hours as needed for Pain (scale 4-6). cyclobenzap 2020-0 Yes [id number] 10mg Take 1 [facility] rine 10 mg 4-08 tablet by ity of tablet 00:00: mouth 3 [place] 00 (three) Medical times Branch daily as needed for Muscle Spasms. ibuprofen 2020-0 Yes [id number] 800mg Take 1 [facility] 800 mg 4-08 tablet by ity of tablet 00:00: mouth [place] 00 every 6 Medical (six) Branch hours as needed for Pain (scale 1-3). benzonatate 2020-0 Yes [id number] 100mg Take 1 [facility] 100 mg 4-08 capsule by ity of capsule 00:00: mouth 3 [place] 00 (three) Medical times Branch daily as needed for Cough. HYDROcodone 2020-0 Yes [id number] 1{tbl} Take 1 [facility] -acetaminop 4-08 tablet by ity of hen 5-325 00:00: mouth [place] mg tablet 00 every 6 Medical (six) Branch hours as needed for Pain (scale 4-6). cyclobenzap 2020-0 Yes [id number] 10mg Take 1 [facility] rine 10 mg 4-08 tablet by ity of tablet 00:00: mouth 3 [place] 00 (three) Medical times Branch daily as needed for Muscle Spasms. ibuprofen 2020-0 Yes [id number] 800mg Take 1 [facility] 800 mg 4-08 tablet by ity of tablet 00:00: mouth [place] 00 every 6 Medical (six) Branch hours as needed for Pain (scale 1-3). benzonatate 2020-0 Yes [id number] 100mg Take 1 [facility] 100 mg 4-08 capsule by ity of capsule 00:00: mouth 3 [place] 00 (three) Medical times Branch daily as needed for Cough. HYDROcodone 2020-0 Yes [id number] 1{tbl} Take 1 [facility] -acetaminop 4-08 tablet by ity of hen 5-325 00:00: mouth [place] mg tablet 00 every 6 Medical (six) Branch hours as needed for Pain (scale 4-6). cyclobenzap 2020-0 Yes [id number] 10mg Take 1 [facility] rine 10 mg 4-08 tablet by ity of tablet 00:00: mouth 3 [place] 00 (three) Medical times Branch daily as needed for Muscle Spasms. ibuprofen 2020-0 Yes [id number] 800mg Take 1 [facility] 800 mg 4-08 tablet by ity of tablet 00:00: mouth [place] 00 every 6 Medical (six) Branch hours as needed for Pain (scale 1-3). benzonatate 2020-0 Yes [id number] 100mg Take 1 [facility] 100 mg 4-08 capsule by ity of capsule 00:00: mouth 3 [place] 00 (three) Medical times Branch daily as needed for Cough. HYDROcodone 2020-0 Yes [id number] 1{tbl} Take 1 [facility] -acetaminop 4-08 tablet by ity of hen 5-325 00:00: mouth [place] mg tablet 00 every 6 Medical (six) Branch hours as needed for Pain (scale 4-6). cyclobenzap 2020-0 Yes [id number] 10mg Take 1 [facility] rine 10 mg 4-08 tablet by ity of tablet 00:00: mouth 3 [place] 00 (three) Medical times Branch daily as needed for Muscle Spasms. ibuprofen 2020-0 Yes [id number] 800mg Take 1 [facility] 800 mg 4-08 tablet by ity of tablet 00:00: mouth [place] 00 every 6 Medical (six) Branch hours as needed for Pain (scale 1-3). benzonatate 2020-0 Yes [id number] 100mg Take 1 [facility] 100 mg 4-08 capsule by ity of capsule 00:00: mouth 3 [place] 00 (three) Medical times Branch daily as needed for Cough. HYDROcodone 2020-0 Yes [id number] 1{tbl} Take 1 [facility] -acetaminop 4-08 tablet by ity of hen 5-325 00:00: mouth [place] mg tablet 00 every 6 Medical (six) Branch hours as needed for Pain (scale 4-6). cyclobenzap 2020-0 Yes [id number] 10mg Take 1 [facility] rine 10 mg 4-08 tablet by ity of tablet 00:00: mouth 3 [place] 00 (three) Medical times Branch daily as needed for Muscle Spasms. ibuprofen 2020-0 Yes [id number] 800mg Take 1 [facility] 800 mg 4-08 tablet by ity of tablet 00:00: mouth [place] 00 every 6 Medical (six) Branch hours as needed for Pain (scale 1-3). benzonatate 2020-0 Yes [id number] 100mg Take 1 [facility] 100 mg 4-08 capsule by ity of capsule 00:00: mouth 3 [place] 00 (three) Medical times Branch daily as needed for Cough. HYDROcodone 2020-0 Yes [id number] 1{tbl} Take 1 [facility] -acetaminop 4-08 tablet by ity of hen 5-325 00:00: mouth [place] mg tablet 00 every 6 Medical (six) Branch hours as needed for Pain (scale 4-6). cyclobenzap 2020-0 Yes [id number] 10mg Take 1 [facility] rine 10 mg 4-08 tablet by ity of tablet 00:00: mouth 3 [place] 00 (three) Medical times Branch daily as needed for Muscle Spasms. ibuprofen 2020-0 Yes [id number] 800mg Take 1 [facility] 800 mg 4-08 tablet by ity of tablet 00:00: mouth [place] 00 every 6 Medical (six) Branch hours as needed for Pain (scale 1-3). benzonatate 2020-0 Yes [id number] 100mg Take 1 [facility] 100 mg 4-08 capsule by ity of capsule 00:00: mouth 3 [place] 00 (three) Medical times Branch daily as needed for Cough. HYDROcodone 2020-0 Yes [id number] 1{tbl} Take 1 [facility] -acetaminop 4-08 tablet by ity of hen 5-325 00:00: mouth [place] mg tablet 00 every 6 Medical (six) Branch hours as needed for Pain (scale 4-6). HYDROcodone 2020-0 Yes [id number] 1{tbl} Take 1 [facility] -acetaminop 4-08 tablet by ity of hen 5-325 00:00: mouth [place] mg tablet 00 every 6 Medical (six) Branch hours as needed for Pain (scale 4-6). cyclobenzap 2020-0 Yes [id number] 10mg Take 1 [facility] rine 10 mg 4-08 tablet by ity of tablet 00:00: mouth 3 [place] 00 (three) Medical times Branch daily as needed for Muscle Spasms. ibuprofen 2020-0 Yes [id number] 800mg Take 1 [facility] 800 mg 4-08 tablet by ity of tablet 00:00: mouth [place] 00 every 6 Medical (six) Branch hours as needed for Pain (scale 1-3). benzonatate 2020-0 Yes [id number] 100mg Take 1 [facility] 100 mg 4-08 capsule by ity of capsule 00:00: mouth 3 [place] 00 (three) Medical times Branch daily as needed for Cough. cyclobenzap 2020-0 Yes [id number] 10mg Take 1 [facility] rine 10 mg 4-08 tablet by ity of tablet 00:00: mouth 3 [place] 00 (three) Medical times Branch daily as needed for Muscle Spasms. HYDROcodone 2020-0 Yes [id number] 1{tbl} Take 1 [facility] -acetaminop 4-08 tablet by ity of hen 5-325 00:00: mouth [place] mg tablet 00 every 6 Medical (six) Branch hours as needed for Pain (scale 4-6). cyclobenzap 2020-0 Yes [id number] 10mg Take 1 [facility] rine 10 mg 4-08 tablet by ity of tablet 00:00: mouth 3 [place] 00 (three) Medical times Branch daily as needed for Muscle Spasms. ibuprofen 2020-0 Yes [id number] 800mg Take 1 [facility] 800 mg 4-08 tablet by ity of tablet 00:00: mouth [place] 00 every 6 Medical (six) Branch hours as needed for Pain (scale 1-3). ibuprofen 2020-0 Yes [id number] 800mg Take 1 [facility] 800 mg 4-08 tablet by ity of tablet 00:00: mouth [place] 00 every 6 Medical (six) Branch hours as needed for Pain (scale 1-3). benzonatate 2020-0 Yes [id number] 100mg Take 1 [facility] 100 mg 4-08 capsule by ity of capsule 00:00: mouth 3 [place] 00 (three) Medical times Branch daily as needed for Cough. benzonatate 2020-0 Yes [id number] 100mg Take 1 [facility] 100 mg 4-08 capsule by ity of capsule 00:00: mouth 3 [place] 00 (three) Medical times Branch daily as needed for Cough. HYDROcodone 2020-0 Yes [id number] 1{tbl} Take 1 [facility] -acetaminop 4-08 tablet by ity of hen 5-325 00:00: mouth [place] mg tablet 00 every 6 Medical (six) Branch hours as needed for Pain (scale 4-6). cyclobenzap 2020-0 Yes [id number] 10mg Take 1 [facility] rine 10 mg 4-08 tablet by ity of tablet 00:00: mouth 3 [place] 00 (three) Medical times Branch daily as needed for Muscle Spasms. ibuprofen 2020-0 Yes [id number] 800mg Take 1 [facility] 800 mg 4-08 tablet by ity of tablet 00:00: mouth [place] 00 every 6 Medical (six) Branch hours as needed for Pain (scale 1-3). benzonatate 2020-0 Yes [id number] 100mg Take 1 [facility] 100 mg 4-08 capsule by ity of capsule 00:00: mouth 3 [place] 00 (three) Medical times Branch daily as needed for Cough. HYDROcodone 2020-0 Yes [id number] 1{tbl} Take 1 [facility] -acetaminop 4-08 tablet by ity of hen 5-325 00:00: mouth [place] mg tablet 00 every 6 Medical (six) Branch hours as needed for Pain (scale 4-6). cyclobenzap 2020-0 Yes [id number] 10mg Take 1 [facility] rine 10 mg 4-08 tablet by ity of tablet 00:00: mouth 3 [place] 00 (three) Medical times Branch daily as needed for Muscle Spasms. ibuprofen 2020-0 Yes [id number] 800mg Take 1 [facility] 800 mg 4-08 tablet by ity of tablet 00:00: mouth [place] 00 every 6 Medical (six) Branch hours as needed for Pain (scale 1-3). benzonatate 2020-0 Yes [id number] 100mg Take 1 [facility] 100 mg 4-08 capsule by ity of capsule 00:00: mouth 3 [place] 00 (three) Medical times Branch daily as needed for Cough. ibuprofen 2020-0 Yes [id number] 800mg Take 1 [facility] 800 mg 4-08 tablet by ity of tablet 00:00: mouth [place] 00 every 6 Medical (six) Branch hours as needed for Pain (scale 1-3). ibuprofen 2020-0 Yes [id number] 800mg Take 1 [facility] 800 mg 4-08 tablet by ity of tablet 00:00: mouth [place] 00 every 6 Medical (six) Branch hours as needed for Pain (scale 1-3). ibuprofen 2020-0 Yes [id number] 800mg Take 1 [facility] 800 mg 4-08 tablet by ity of tablet 00:00: mouth [place] 00 every 6 Medical (six) Branch hours as needed for Pain (scale 1-3). ibuprofen 2020-0 Yes [id number] 800mg Take 1 [facility] 800 mg 4-08 tablet by ity of tablet 00:00: mouth [place] 00 every 6 Medical (six) Branch hours as needed for Pain (scale 1-3). ibuprofen 2020-0 Yes [id number] 800mg Take 1 [facility] 800 mg 4-08 tablet by ity of tablet 00:00: mouth [place] 00 every 6 Medical (six) Branch hours as needed for Pain (scale 1-3). ibuprofen 2020-0 Yes [id number] 800mg Take 1 [facility] 800 mg 4-08 tablet by ity of tablet 00:00: mouth [place] 00 every 6 Medical (six) Branch hours as needed for Pain (scale 1-3). lidocaine 2020-0 2020- No 1{patch 1 Patch, Univers (LIDODERM) 06-14 } Topical, ity of 5 % (700 16:30: 04:00 Administer [place] mg/patch) 00 :00 over 12 Medical patch 1 Hours, Branch Patch ONCE, 1 dose, Fri06/15/19 at 1130, Routine docusate 2020-0 Yes 100mg 100 mg, Unive rs (COLACE) 06-14 Oral, it[facility] of capsule 100 14:00: DAILY, [place] mg 00 First dose Medical on Fri Branch 06/15/19 at 0900, Until Discontinu ed, Routine enoxaparin 2020-0 Yes 40mg 40 mg, Unive rs (LOVENOX) 06-14 Subcutaneo ity of injection 14:00: us, DAILY, [place] 40 mg 00 First dose Medical on [facility] 06/15/19 at 0900, Until Discontinu ed, Routine metoprolol 2020-0 Yes 12.5mg 12.5 mg, U nivers tartrate 4-07 Oral, ity of (LOPRESSOR) 14:00: DAILY, [place] tablet 12.5 00 First dose Me dical mg on [facility] 06/15/19 at 0900, Until Discontinu ed hydroCHLORO 2020-0 Yes 12.5mg 12.5 mg, [facility] thiazide 4- Oral, ity of (ESIDRIX) 14:00: DAILY, [place] tablet 12.5 00 First dose Me dical mg on [facility] 06/15/19 at 0900, Until Discontinu ed, Routine loratadine 2020-0 Yes 10mg 10 mg, Unive rs (CLARITIN) 4- Oral, ity of tablet 10 14:00: DAILY, [place] mg 00 First dose Medical on [facility] 06/15/19 at 0900, Until Discontinu ed, Routine
family member caretaker approving Restricted medication : [facility] aspirin 2020-0 Yes 81mg 81 mg, [facility] chewable 06-14 Oral, ity of tablet 81 14:00: DAILY, [place] mg 00 First dose Medical on [facility] 06/15/19 at 0900, Until Discontinu ed, Routine pravastatin 2020-0 Yes 40mg 40 mg, Univ ers (PRAVACHOL) 4-07 Oral, QHS, it y of tablet 40 02:00: First dose [place] mg 00 on [facility] 06/14/19 at Branch 2100, Until Discontinu ed, Routine valsartan 2020-0 Yes 40mg 40 mg, Univer s (DIOVAN) 4-07 Oral, BID, ity o f tablet 40 01:00: First dose [place] mg 00 on [facility] 06/14/19 at Branch 2000, Until Discontinu ed, Routine ketorolac 2020-0 2020- No 30mg 30 mg, Unive rs (TORADOL) 06-13 04-07 Slow IV ity of injection 23:00: 17:18 Push, Q6H, [place] 30 mg 00 :00 4 doses, Medical First dose Branch on [facility] 06/14/19 at 1800, Last dose on Fri06/15/19 at 1200, Routine
family member caretaker approving Restricted medication : DENISE LEVI methocarbam 2020-0 Yes 500mg 500 mg, Un abdulkadir ol 4-06 Oral, QID, ity of (ROBAXIN) 21:00: First dose [place] tablet 500 00 on Mon Medical mg 06/14/19 at Branch 1600, Until Discontinu ed, Routine albuterol 2020-0 2020- No 2.5mg 2.5 mg, Uni vers (PROVENTIL) 4-06 04-08 Inhalation i ty of 2.5 mg /3 20:19: 13:25 , Q4HPRN, [place] mL (0.083 19 :44 Starting Medica l %) [facility] 06/14/19 Branch nebulizer at 1519, solution Until Wed 2.5 mg 06/16/19 at 0825, Routine, Shortness of Breath, Wheezing acetaminoph 2020-0 Yes 1000mg 1,000 mg, Univers en 4-06 Oral, Q8H, ity of (TYLENOL) 19:30: First dose [place] tablet 00 on [facility] Medical 1,000 mg 06/14/19 at Branch 1430, Until Discontinu ed, Routine gabapentin 2020-0 Yes 300mg 300 mg, Uni vers (NEURONTIN) 4-06 Oral, TID, it y of capsule 300 19:30: First dose [place] mg 00 on [facility] Medical 06/14/19 at Branch 1430, Until Discontinu ed, Routine loratadine 2020-0 Yes 10mg Take 10 mg U nivers 10 mg 4-06 by mouth. ity of tablet 18:44: [place] [id number] Medical [place] aspirin 2020-0 Yes 81mg Take 81 mg Univ ers (ASPIRIN 4-06 by mouth ity of LOW DOSE) 18:44: daily. [place] 81 mg 45 Medical tablet [place] ondansetron 2020-0 Yes 4mg 4 mg, Slow Univers (ZOFRAN 4-06 IV Push, ity of (PF)) 18:43: Q6HPRN, [place] injection 4 04 Starting Medi alex mg [facility] 06/14/19 Branch at 1343, Until Discontinu ed, Routine, Nausea and Vomiting (N/V) HYDROcodone 2020-0 Yes 1{tbl} 1 tablet, Univers -acetaminop 4-06 Oral, ity of hen (NORCO) 18:42: Q6HPRN, [facility] as 10-325 mg 51 Starting Medica l tablet 1 [facility] 06/14/19 Branc h tablet at 1342, Until Discontinu ed, Routine, Pain (scale 7-10) traMADol 2019- No 50mg 50 mg, Univer s (ULTRAM) 06-13 04-08 Oral, ity of tablet 50 18:42: 18:41 Q8HPRN[place] :47 [place] Medical 06/14/19 Branch at 1342, Until 06/16/19 at 1341, Routine, Pain (scale 4-6) iohexol 2019- No 120mL 120 mL, Unive rs (OMNIPAQUE 06-13 Intravenou it y of 350 16:30: 16:15 s, ONCE, 1 [place] BULK-150 00 :00 dose, Mon Medica l mL) 06/14/19 at Branch injection 1130, 120 mL Routine loratadine 2018-03 Yes 10mg Take 10 mg U nivers 10 mg 06 by mouth. ity of tablet 15:20: [address] aspirin 2018-03 Yes 81mg Take 81 mg Univ ers (ASPIRIN 1-06 by mouth ity of LOW DOSE) 15:20: daily. [place] [address] [id number] Medical tablet [place] sucralfate Yes 1g Take 10 mL [facility] (CARAFATE) 8-13 by mouth Colle ge 1 GM/10ML 00:00: four times of suspension 00 daily. Medicin Take 1 e hour after meals and before bedtime omeprazole Yes 40mg Take 1 Cap [place] (PRILOSEC) 8-13 by mouth Colle ge 40 MG 00:00: two times of capsule 00 daily. Medicin Take at e least 30 minutes before breakfast and dinner. Open Capsules. Can take with tsp applesauce Loratadine 2018- Yes 1{capsu Take 1 Cap Lucio 10 MG CAPS 7-25 le} by mouth Colle ge 19:59: daily. of 12 Medicin e aspirin EC 2018- Yes 81mg Take 81 mg [place] (ASPIRIN 7-25 by mouth College 81) 81 MG 19:59: daily. of tablet 12 Medicin e pravastatin Yes 40mg Take 40 mg [facility] (PRAVACHOL) 6-26 by mouth Dagoberto ege 40 MG 00:00: daily. of tablet 00 Medicin e hydrochloro Yes 12.5mg Take 12.5 [facility] thiazide 6-26 mg by College 12.5 MG 00:00: mouth of TABS 00 daily. Medicin e BYSTOLIC 5 2018- Yes 5mg Take 5 mg [facility] MG TABS 6-26 by mouth College 00:00: daily. of 00 Medicin e valsartan-h Yes 1{tbl} Take 1 Tab [facility] ydrochlorot 6-26 by mouth Dagoberto ege hiazide 00:00: daily. of (DIOVAN-HCT 00 Medicin ) 320-12.5 e MG per tablet aspirin 2017-03 Yes 81mg Take 81 mg Univ ers (ASPIRIN 2-03 by mouth ity of LOW DOSE) 16:12: daily. [place] 81 mg EC 19 Medical tablet Branch loratadine 2017-03 Yes 10mg Take 10 mg U nivers 10 mg 2-03 by mouth. ity of tablet 16:10: [place] 47 Medical Branch valsartan-h 2017-03 Yes Univodalys s ydrochlorot 0-24 ity of hiazide 00:00: [place] 320-12.5 mg 00 Medical per tablet Branch valsartan-h 2017-03 Yes Univodalys s ydrochlorot 0-24 ity of hiazide 00:00: [place] 320-12.5 mg 00 Medical per tablet Branch valsartan-h 2017-03 Yes Univer s ydrochlorot 0-24 ity of hiazide 00:00: [place] 320-12.5 mg 00 Medical per tablet Branch valsartan-h 2017-03 Yes Univer s ydrochlorot 0-24 ity of hiazide 00:00: [place] 320-12.5 mg 00 Medical per tablet Branch valsartan-h 2017-03 Yes Univer s ydrochlorot 0-24 ity of hiazide 00:00: [place] 320-12.5 mg 00 Medical per tablet Branch valsartan-h 2017-03 Yes Univer s ydrochlorot 0-24 ity of hiazide 00:00: [place] 320-12.5 mg 00 Medical per tablet Branch valsartan-h 2017-03 Yes Univer s ydrochlorot 0-24 ity of hiazide 00:00: [place] 320-12.5 mg 00 Medical per tablet Branch valsartan-h 2017-03 Yes Univer s ydrochlorot 0-24 ity of hiazide 00:00: [place] 320-12.5 mg 00 Medical per tablet Branch valsartan-h 2017-03 Yes Univer s ydrochlorot 0-24 ity of hiazide 00:00: [place] 320-12.5 mg 00 Medical per tablet Branch valsartan-h 2017-03 Yes Univer s ydrochlorot 0-24 ity of hiazide 00:00: [place] 320-12.5 mg 00 Medical per tablet Branch valsartan-h 2017-03 Yes Univer s ydrochlorot 0-24 ity of hiazide 00:00: [place] 320-12.5 mg 00 Medical per tablet Branch valsartanh 2017-03 Yes Univodalys s ydrochlorot 0-24 ity of hiazide 00:00: [place] 320-12.5 mg 00 Medical per tablet Branch valsartan 2017-03 Yes Univodalys s ydrochlorot 0-24 ity of hiazide 00:00: [place] 320-12.5 mg 00 Medical per tablet Branch valsartan 2017-03 Yes Univodalys s ydrochlorot 0-24 ity of hiazide 00:00: [place] 320-12.5 mg 00 Medical per tablet Branch valsartan 2017-03 Yes Univodalys s ydrochlorot 0-24 ity of hiazide 00:00: [place] 320-12.5 mg 00 Medical per tablet Branch valsartan- 2017-03 Yes Univodalys s ydrochlorot 0-24 ity of hiazide 00:00: [place] 320-12.5 mg 00 Medical per tablet Branch valsartan- 2017-03 Yes Univodalys s ydrochlorot 0-24 ity of hiazide 00:00: [place] 320-12.5 mg 00 Medical per tablet Branch valsartan-h 2017-03 Yes Univodalys s ydrochlorot 0-24 ity of hiazide 00:00: [place] 320-12.5 mg 00 Medical per tablet Branch valsartan-h 2017-03 Yes Univodalys s ydrochlorot 0-24 ity of hiazide 00:00: [place] 320-12.5 mg 00 Medical per tablet Branch valsartan- 2017-03 Yes [place] ydrochlorot 0-24 ity of hiazide 00:00: [place] 320-12.5 mg 00 Medical per tablet Branch valsartan-h 2017-03 Yes Univodalys s ydrochlorot 0-24 ity of hiazide 00:00: [place] 320-12.5 mg 00 Medical per tablet Branch valsartan 2017-03 Yes Univodalys s ydrochlorot 0-24 ity of hiazide 00:00: [place] 320-12.5 mg 00 Medical per tablet Branch valsartan 2017-03 Yes [place] s ydrochlorot 0-24 ity of hiazide 00:00: [place] 320-12.5 mg 00 Medical per tablet Branch valsartan 2017-03 Yes [place] s ydrochlorot 0-24 ity of hiazide 00:00: [place] 320-12.5 mg 00 Medical per tablet Branch valsartan 2017-03 Yes [place] s ydrochlorot 0-24 ity of hiazide 00:00: [place] 320-12.5 mg 00 Medical per tablet Branch valsartan 2017-03 Yes [place] s ydrochlorot 0-24 ity of hiazide 00:00: [place] 320-12.5 mg 00 Medical per tablet Branch valsartan 2017-03 Yes [place] s ydrochlorot 0-24 ity of hiazide 00:00: [place] 320-12.5 mg 00 Medical per tablet Branch valsartan 2017-03 Yes [place] s ydrochlorot 0-24 ity of hiazide 00:00: [place] 320-12.5 mg 00 Medical per tablet Branch valsartan- 2017-03 Yes [place] s ydrochlorot 0-24 ity of hiazide 00:00: [place] 320-12.5 mg 00 Medical per tablet Branch valsartan-h 2017-03 Yes [place] s ydrochlorot 0-24 ity of hiazide 00:00: [place] 320-12.5 mg 00 Medical per tablet Branch valsartan- 2017-03 Yes [place] s ydrochlorot 0-24 ity of hiazide 00:00: [place] 320-12.5 mg 00 Medical per tablet Branch valsartan- 2017-03 Yes Univer s ydrochlorot 0-24 ity of hiazide 00:00: [place] 320-12.5 mg 00 Medical per tablet Branch valsartanh 2017-03 Yes Univer s ydrochlorot 0-24 ity of hiazide 00:00: [place] 320-12.5 mg 00 Medical per tablet Branch valsartanh 2017-03 Yes Univer s ydrochlorot 0-24 ity of hiazide 00:00: [place] 320-12.5 mg 00 Medical per tablet Branch valsartan 2017-03 Yes Univer s ydrochlorot 0-24 ity of hiazide 00:00: [place] 320-12.5 mg 00 Medical per tablet Branch valsartan 2017-03 Yes Univer s ydrochlorot 0-24 ity of hiazide 00:00: [place] 320-12.5 mg 00 Medical [facility] Univer s ydrochlorot 0-24 ity of hiazide 00:00: [place] 320-12.5 mg 00 Medical per tablet [facility] 5 2017-03 Yes Univers mg tablet 0-23 ity of 00:00: [place] 00 [facility] 5 2017-03 Yes Univers mg tablet 0-23 ity of 00:00: [place] 00 [facility] 5 2017-03 Yes Univers mg tablet 0-23 ity of 00:00: [place] 00 [facility] 5 2017-03 Yes Univers mg tablet 0-23 ity of 00:00: [place] [facility] 5 2017-03 Yes Univers mg tablet 0-23 ity of 00:00: [place] [facility] 5 2017-03 Yes Univers mg tablet 0-23 ity of 00:00: [place] 00 [facility] 5 2017-03 Yes Univers mg tablet 0-23 ity of 00:00: [place] 00 [facility] 5 2017-03 Yes Univers mg tablet 0-23 ity of 00:00: [place] 00 [facility] 5 2017-03 Yes Univers mg tablet 0-23 ity of 00:00: [place] 00 [facility] 5 2017-03 Yes Univers mg tablet 0-23 ity of 00:00: [place] [facility] 5 2017-03 Yes Univers mg tablet 0-23 ity of 00:00: [place] 00 Medical Branch BYSTOLIC 5 2018-1 Yes Univers mg tablet 0-23 ity of 00:00: [place] [facility] BYSTOLIC 5 2018-1 Yes Univers mg tablet 0-23 ity of 00:00: [place] [facility] BYSTOLIC 5 2018-1 Yes Univers mg tablet 0-23 ity of 00:00: [place] [facility] BYSTOLIC 5 2018-1 Yes Univers mg tablet 0-23 ity of 00:00: [place] [facility] BYSTOLIC 5 2018-1 Yes Univers mg tablet 0-23 ity of 00:00: [place] [facility] BYSTOLIC 5 2018-1 Yes Univers mg tablet 0-23 ity of 00:00: [place] [facility] BYSTOLIC 5 2018- Yes Univers mg tablet 0-23 ity of 00:00: [place] [facility] BYSTOLIC 5 2018-1 Yes Univers mg tablet 0-23 ity of 00:00: [place] [facility] BYSTOLIC 5 2018-1 Yes Univers mg tablet 0-23 ity of 00:00: [place] [facility] BYSTOLIC 5 2018-1 Yes Univers mg tablet 0-23 ity of 00:00: [place] [facility] BYSTOLIC 5 2018-1 Yes Univers mg tablet 0-23 ity of 00:00: [place] [facility] BYSTOLIC 5 2018-1 Yes Univers mg tablet 0-23 ity of 00:00: [place] [facility] BYSTOLIC 5 2018-1 Yes Univers mg tablet 0-23 ity of 00:00: [place] [facility] BYSTOLIC 5 2018-1 Yes Univers mg tablet 0-23 ity of 00:00: [place] [facility] BYSTOLIC 5 2018-1 Yes Univers mg tablet 0-23 ity of 00:00: [place] [facility] BYSTOLIC 5 2018-1 Yes Univers mg tablet 0-23 ity of 00:00: [place] [facility] BYSTOLIC 5 2018-1 Yes Univers mg tablet 0-23 ity of 00:00: [place] [facility] BYSTOLIC 5 2018-1 Yes Univers mg tablet 0-23 ity of 00:00: [place] [facility] BYSTOLIC 5 2017-1 Yes Univers mg tablet 0-23 ity of 00:00: [place] [facility] BYSTOLIC 5 2018-1 Yes Univers mg tablet 0-23 ity of 00:00: [place] [facility] BYSTOLIC 5 2017- Yes Univers mg tablet 0-23 ity of 00:00: [place] Medical [facility] 5 2017- Yes Univers mg tablet 0-23 ity of 00:00: [place] [facility] 5 2017- Yes Univers mg tablet 0-23 ity of 00:00: [place] [facility] 5 2017- Yes Univers mg tablet 0-23 ity of 00:00: [place] [facility] 5 2017- Yes Univers mg tablet 0-23 ity of 00:00: [place] [facility] 5 2017- Yes Univers mg tablet 0-23 ity of 00:00: [place] [facility] pravastatin 2018- Yes Univer s 40 mg 0-20 ity of tablet 00:00: [place] [facility] pravastatin 2018- Yes Univer s 40 mg 0-20 ity of tablet 00:00: [place] [facility] Branch pravastatin 2018- Yes Univer s 40 mg 0-20 ity of tablet 00:00: [place] [facility] pravastatin 2018- Yes Univer s 40 mg 0-20 ity of tablet 00:00: [place] [id number] Medical Branch hydroCHLORO 2018- Yes Univer s thiazide 0-20 ity of 12.5 mg 00:00: [place] tablet 00 Medical Branch pravastatin 2018-1 Yes Univer s 40 mg 0-20 ity of tablet 00:00: [place] [facility] pravastatin 2018-1 Yes Univer s 40 mg 0-20 ity of tablet 00:00: [place] [facility] pravastatin 2018-1 Yes Univer s 40 mg 0-20 ity of tablet 00:00: [place] [facility] pravastatin 2018-1 Yes Univer s 40 mg 0-20 ity of tablet 00:00: [place] [facility] pravastatin 2018-1 Yes Univer s 40 mg 0-20 ity of tablet 00:00: [place] [facility] pravastatin 2018-1 Yes Univer s 40 mg 0-20 ity of tablet 00:00: [place] [facility] pravastatin 2018-1 Yes Univer s 40 mg 0-20 ity of tablet 00:00: [place] [facility] pravastatin 2018-1 Yes Univer s 40 mg 0-20 ity of tablet 00:00: [place] 00 Medical Branch hydroCHLORO 2018-1 Yes Univer s thiazide 0-20 ity of 12.5 mg 00:00: [place] tablet 00 Medical Branch pravastatin 2018-1 Yes Univer s 40 mg 0-20 ity of tablet 00:00: [place] 00 Medical Branch pravastatin 2018-1 Yes Univer s 40 mg 0-20 ity of tablet 00:00: [place] [facility] pravastatin 2018-1 Yes Univer s 40 mg 0-20 ity of tablet 00:00: [place] [facility] pravastatin 2018-1 Yes Univer s 40 mg 0-20 ity of tablet 00:00: [place] [facility] pravastatin 2018-1 Yes Univer s 40 mg 0-20 ity of tablet 00:00: [place] [facility] pravastatin 2018-1 Yes Univer s 40 mg 0-20 ity of tablet 00:00: [place] [facility] pravastatin 2018-1 Yes Univer s 40 mg 0-20 ity of tablet 00:00: [place] [id number] Medical Branch pravastatin 2018-1 Yes Univer s 40 mg 0-20 ity of tablet 00:00: [place] [facility] pravastatin 2018-1 Yes Univer s 40 mg 0-20 ity of tablet 00:00: [place] [address] Medical Branch pravastatin 2018-1 Yes Univer s 40 mg 0-20 ity of tablet 00:00: [place] [id number] Medical Branch pravastatin 2018-1 Yes Univer s 40 mg 0-20 ity of tablet 00:00: [place] [facility] pravastatin 2018-1 Yes Univer s 40 mg 0-20 ity of tablet 00:00: [place] [address] Medical Branch pravastatin 2018-1 Yes Univer s 40 mg 0-20 ity of tablet 00:00: [place] [facility] pravastatin 2018-1 Yes Univer s 40 mg 0-20 ity of tablet 00:00: [place] [facility] pravastatin 2018-1 Yes Univer s 40 mg 0-20 ity of tablet 00:00: [place] [id number] Medical Branch pravastatin 2018-1 Yes Univer s 40 mg 0-20 ity of tablet 00:00: [place] [address] Medical Branch pravastatin 2018-1 Yes Univer s 40 mg 0-20 ity of tablet 00:00: [place] [address] Medical Branch pravastatin 2018-1 Yes Univer s 40 mg 0-20 ity of tablet 00:00: [place] [address] Medical Branch pravastatin 2018-1 Yes Univer s 40 mg 0-20 ity of tablet 00:00: [place] [address] Medical Branch pravastatin 2018- Yes Univer s 40 mg 0-20 ity of tablet 00:00: [place] 00 Medical Branch pravastatin 2018- Yes Univer s 40 mg 0-20 ity of tablet 00:00: [place] 00 Medical Branch pravastatin 2018- Yes Univer s 40 mg 0-20 ity of tablet 00:00: [place] 00 Medical Branch pravastatin 2018- Yes Univer s 40 mg 0-20 ity of tablet 00:00: [place] 00 Medical Branch pravastatin 2018- Yes Univer s 40 mg 0-20 ity of tablet 00:00: [place] 00 Medical Branch pravastatin 2018- Yes Univer s 40 mg 0-20 ity of tablet 00:00: [place] 00 Medical Branch hydroCHLORO 2018- Yes Univer s thiazide 0-20 ity of 12.5 mg 00:00: [place] tablet 00 Medical Branch hydroCHLORO 2018- 2020- No Unive rs thiazide 0-20 04-08 ity of 12.5 mg 00:00: 00:00 [place] tablet 00 :00 Medical Branch Immunizations Ordered Filled Immunization Date Status Comments [facility] e Immunization Name Name Pneumococcal 2019-06-16 Completed University o f Polysaccharide, 00:00:00 [place] Med ical PPSV23 (PNEUMOVAX) Branch Pneumococcal 2019-06-16 Completed University o f Polysaccharide, 00:00:00 [place] Med ical PPSV23 (PNEUMOVAX) Branch Pneumococcal 2019-06-16 Completed University o f Polysaccharide, 00:00:00 [place] Med ical PPSV23 (PNEUMOVAX) Branch Pneumococcal 2019-06-16 Completed University o f Polysaccharide, 00:00:00 [place] Med ical PPSV23 (PNEUMOVAX) Branch Pneumococcal 2019-06-16 Completed University o f Polysaccharide, 00:00:00 [place] Med ical PPSV23 (PNEUMOVAX) Branch Pneumococcal 2019-06-16 Completed University o f Polysaccharide, 00:00:00 [place] Med ical PPSV23 (PNEUMOVAX) Branch Pneumococcal 2019-06-16 Completed University o f Polysaccharide, 00:00:00 [place] Med ical PPSV23 (PNEUMOVAX) Branch Pneumococcal 2019-06-16 Completed University o f Polysaccharide, 00:00:00 [place] Med ical PPSV23 (PNEUMOVAX) Branch Pneumococcal 2019-06-16 Completed University o f Polysaccharide, 00:00:00 [place] Med ical PPSV23 (PNEUMOVAX) Branch Pneumococcal 2019-06-16 Completed University o f Polysaccharide, 00:00:00 [place] Med ical PPSV23 (PNEUMOVAX) Branch Pneumococcal 2019-06-16 Completed University o f Polysaccharide, 00:00:00 [place] Med ical PPSV23 (PNEUMOVAX) Branch Pneumococcal 2019-06-16 Completed University o f Polysaccharide, 00:00:00 [place] Med ical PPSV23 (PNEUMOVAX) Branch Pneumococcal 2019-06-16 Completed University o f Polysaccharide, 00:00:00 [place] Med ical PPSV23 (PNEUMOVAX) Branch Pneumococcal 2019-06-16 Completed University o f Polysaccharide, 00:00:00 [place] Med ical PPSV23 (PNEUMOVAX) Branch Pneumococcal 2019-06-16 Completed University o f Polysaccharide, 00:00:00 [place] Med ical PPSV23 (PNEUMOVAX) Branch Pneumococcal 2019-06-16 Completed University o f Polysaccharide, 00:00:00 [place] Med ical PPSV23 (PNEUMOVAX) Branch Pneumococcal 2019-06-16 Completed University o f Polysaccharide, 00:00:00 [place] Med ical PPSV23 (PNEUMOVAX) Branch Pneumococcal 2019-06-16 Completed University o f Polysaccharide, 00:00:00 [place] Med ical PPSV23 (PNEUMOVAX) Branch Pneumococcal 2019-06-16 Completed University o f Polysaccharide, 00:00:00 [place] Med ical PPSV23 (PNEUMOVAX) Branch Pneumococcal 2019-06-16 Completed University o f Polysaccharide, 00:00:00 [place] Med ical PPSV23 (PNEUMOVAX) Branch Pneumococcal 2019-06-16 Completed University o f Polysaccharide, 00:00:00 [place] Med ical PPSV23 (PNEUMOVAX) Branch Pneumococcal 2019-06-16 Completed University o f Polysaccharide, 00:00:00 [place] Med ical PPSV23 (PNEUMOVAX) Branch Pneumococcal 2019-06-16 Completed University o f Polysaccharide, 00:00:00 [place] Med ical PPSV23 (PNEUMOVAX) Branch Pneumococcal 2019-06-16 Completed University o f Polysaccharide, 00:00:00 [place] Med ical PPSV23 (PNEUMOVAX) Branch Pneumococcal 2019-06-16 Completed University o f Polysaccharide, 00:00:00 [place] Med ical PPSV23 (PNEUMOVAX) Branch Pneumococcal 2019-06-16 Completed University o f Polysaccharide, 00:00:00 [place] Med ical PPSV23 (PNEUMOVAX) Branch Pneumococcal 2019-06-16 Completed University o f Polysaccharide, 00:00:00 [place] Med ical PPSV23 (PNEUMOVAX) Branch Pneumococcal 2019-06-16 Completed University o f Polysaccharide, 00:00:00 [place] Med ical PPSV23 (PNEUMOVAX) Branch Pneumococcal 2019-06-16 Completed University o f Polysaccharide, 00:00:00 [place] Med ical PPSV23 (PNEUMOVAX) Branch Pneumococcal 2019-06-16 Completed University o f Polysaccharide, 00:00:00 [place] Med ical PPSV23 (PNEUMOVAX) Branch Pneumococcal 2019-06-16 Completed University o f Polysaccharide, 00:00:00 [place] Med ical PPSV23 (PNEUMOVAX) Branch Pneumococcal 2019-06-16 Completed University o f Polysaccharide, 00:00:00 [place] Med ical PPSV23 (PNEUMOVAX) Branch Pneumococcal 2019-06-16 Completed University o f Polysaccharide, 00:00:00 [place] Med ical PPSV23 (PNEUMOVAX) Branch Pneumococcal 2019-06-16 Completed University o f Polysaccharide, 00:00:00 [place] Med ical PPSV23 (PNEUMOVAX) Branch Vital Signs Vital Name Observation Time Observation Value Comments Source Systolic blood 2019-11-24 18:07:00 138 mm[facility]Hg[facility] 2019-11-24 18:07:00 89 mm[Hg] Unive rsity [facility] Heart rate 2019-11-24 18:07:00 69 /min [facility] Respiratory rate 2019-11-24 18:07:00 18 /min [facility] height 2019-11-24 18:07:00 180.3 cm [facility] Body weight 2019-11-24 18:07:00 142.883 kg [facility] BMI 2019-11-24 18:07:00 43.93 kg/m2 [facility] Systolic blood 2019-10-27 18:28:00 123 mm[Hg] Univer sity [facility] Diastolic blood 2019-10-27 18:28:00 81 mm[Hg] Unive rsity [facility] Heart rate 2019-10-27 18:28:00 67 /min [facility] [place] [facility] Body height 2019-10-27 18:23:00 180.3 cm [facility] [place] [facility] Body weight 2019-10-27 18:23:00 142.883 kg [facility] [place] [facility] BMI 2019-10-27 18:23:00 43.93 kg/m2 Universi ty of [facility] Systolic blood 2019-10-13 18:47:00 129 mm[Hg] Univer sity of pressure [facility] Branch Diastolic blood 2019-10-13 18:47:00 84 mm[Hg] Unive rsity of pressure [facility] Branch Heart rate 2019-10-13 18:47:00 65 /min Universi ty of [facility] Body height 2019-10-13 18:44:00 180.3 cm [facility] [place] [facility] Body weight 2019-10-13 18:44:00 142.883 kg stated Universi ty of [facility] Branch BMI 2019-10-13 18:44:00 43.93 kg/m2 [facility]i ty of [facility] Branch Systolic blood 2019-09-02 20:32:00 142 mm[Hg] Univer sity of pressure [facility] Branch Diastolic blood 2019-09-02 20:32:00 78 mm[Hg] Unive rsity of pressure [facility] Branch Heart rate 2019-09-02 20:32:00 76 /min [facility]i ty of [facility] Body height 2019-09-02 20:32:00 180.3 cm [facility] [place] [facility] Body weight 2019-09-02 20:32:00 141.522 kg [facility] [place] [facility] BMI 2019-09-02 20:32:00 43.52 kg/m2 [facility]i ty of [facility] Systolic blood 2019-08-19 14:11:00 135 mm[Hg] Univer sity of pressure [facility] Diastolic blood 2019-08-19 14:11:00 79 mm[Hg] Unive rsity of pressure [facility] Branch Heart rate 2019-08-19 14:11:00 83 /min [facility] [place] [facility] Body height 2019-08-19 14:11:00 180.3 cm [facility] [place] [facility] Body weight 2019-08-19 14:11:[address] [facility] Branch BMI 2019-08-19 14:11:00 43.52 kg/m2 Universi ty [facility] Systolic blood 2019-06-16 15:52:00 117 mm[Hg] Univer sity of pressure [facility] Diastolic blood 2019-06-16 15:52:00 70 mm[Hg] Unive rsity of pressure [facility] Heart rate 2019-06-16 15:52:00 73 /min Universi ty [facility] Body temperature 2019-06-16 15:52:00 36.11 Radha [facility] Respiratory rate 2019-06-16 15:52:00 20 /min [facility] Oxygen saturation in 2019-06-16 15:52:00 90 /min [facility] Arterial blood by [facility] Pulse oximetry Branch BMI 2019-06-14 19:30:00 43[facility]93 [facility] Body height 2019-06-14 19:30:00 180.3 cm Universi [facility] Body weight 2019-06-14 19:30:00 142.883 kg [facility] Procedures Procedure Date / Time Performing Clinician Source Performed REFERRAL- 2021-06-25 05:01:00 Doctor Unassigned, No [facility] [place] REQUEST/RESPONSE Name Medical Branch REFERRAL- 2021-01-09 05:01:00 Doctor Unassigned, No [facility] [place] REQUEST/RESPONSE Name Medical Branch REFERRAL- 2020-12-19 05:01:00 Doctor Unassigned, No [facility] [place] REQUEST/RESPONSE Name Medical Branch REFERRAL- 2020-06-19 05:01:00 Doctor Unassigned, No [facility] [place] REQUEST/RESPONSE Name Medical Branch REFERRAL- 2020-03-15 06:01:00 Doctor Unassigned, No [facility] [place] REQUEST/RESPONSE Name Medical Branch REFERRAL- 2019-10-27 05:01:00 Doctor Unassigned, No [facility] [place] REQUEST/RESPONSE Name Medical Branch [facility] 2019-09-29 05:01:00 Doctor Unassigned, No [facility] [place] DOCUMENTATION Name Medical Branch XR CHEST 1 VW 2019-09-23 16:54:16 Jef Selby [facility] DSU PRE-OP 2019-09-21 05:01:00 Doctor [facility]assigned, [facility] Name Medical Branch REFERRAL- 2019-08-19 05:01:00 Doctor Unassigned, No [facility] REQUEST/RESPONSE Name Medical Branch BASIC METABOLIC PANEL 2019-06-15 09:16:00 Pat Flores [facility] (NA, K, CL, CO2, Medical Branch GLUCOSE, BUN, CREATININE, CA) CBC WITH DIFFERENTIAL 2019-06-15 09:16:00 Pat Flores Un [facility] ADC / LCC - DRUG SCREEN 2019-06-15 02:01:00 Vale Vásquez [facility] TRIAGE Medical Branch URINALYSIS 2019-06-15 02:00:[address] [facility] XR SHOULDER 2+ VW LEFT 2019-06-14 20:42:37 Mark Carballo [facility] CORONAVIRUS COVID-19 2019-06-14 17:14:00 Vale Vásquez [facility] TESTING [facility] CT ABDOMEN PELVIS W 2019-06-14 16:21:09 Vale Vásquez [facility] CONTRAST [facility] Branch CT CERVICAL SPINE WO 2019-06-14 16:21:09 Vale Vásquez [facility] CONTRAST Medical Branch CT LUMBAR SPINE WO 2019-06-14 16:21:09 Vale Vásquez [facility] CONTRAST Medical Branch CT THORACIC SPINE WO 2019-06-14 16:21:09 Vale Vásquez [facility] CONTRAST Medical Branch CT THORAX W CONTRAST 2019-06-14 16:21:09 Vale Vásquez [facility] Medical [place] LIPASE 2019-06-14 16:12:[address] [facility] TROPONIN I 2019-06-14 16:12:[address] [facility] HEPATIC FUNCTION PANEL 2019-06-14 16:12:00 Vale Vásquez [facility] ([id number]) (ALB,T.PRO,BILI Medical Branch T,BU/BC,ALT,AST,ALK PHOS) BASIC METABOLIC PANEL 2019-06-14 16:12:00 Vale Vásquez [facility] (NA, K, CL, CO2, Medical Branch GLUCOSE, BUN, CREATININE, CA) CBC WITH DIFFERENTIAL 2019-06-14 16:12:00 [facility] GLYCOSYLATED HEMOGLOBIN 2019-06-14 16:12:00 Pat Flores [facility] (A1C) [facility] PROTHROMBIN TIME / INR 2019-06-14 16:12:00 Vale V[facility]quez [facility] ACTIV[facility] PARTIAL 2019-06-14 16:12:00 Vale Vásquez [facility] THRMPLAS GAURAV [facility] N-TERMINAL PRO-BNP 2019-06-14 16:12:00 Vale Vásquez [facility] y [facility] HB ABO GROUPING 2019-06-14 16:11:00 Vale Vásquez [place] [facility] HB CREATININE BLOOD 2019-06-14 15:57:00 Vale Vásquez [facility] ty [facility] EKG-12 LEAD 2019-06-14 15:48:01 Vale Vásquez [place] [facility] EKG-12 LEAD 2019-06-14 15:44:[address] [facility] EMERGENCY DEPARTMENT 2019-06-14 05:01:00 Doctor Unassigned, No U [place] [facility] DOCUMENTS Name [facility] EXTERNAL PROVIDER 2018-10-02 05:01:00 Doctor Unassigned, No Univ [facility] RECORDS Name [facility] Plan of Care Planned Activity Planned Date Details Comments Source Future Scheduled TN HEAL & BEHAV Ordered: [facility] ollege of Test ASSESS,EA 15 11/04/2018 Medicine MIN,INIT [code = 41045] Future Scheduled COLON CANCER [facility] Dagoberto ege of Test SCREENING: Medicine COLONOSCOPY [code = COLON CANCER SCREENING: COLONOSCOPY] Future Scheduled TETANUS SHOT (ADULT) [facility] of Test [code = TETANUS SHOT Medicin e (ADULT)] Future Scheduled BMI FOLLOW UP PLAN [facility] of Test [code = BMI FOLLOW Medicine UP PLAN] Future Scheduled HEPATITIS C [facility] Dagoberto ege of Test SCREENING [code = Medicine HEPATITIS C SCREENING] Future Scheduled HIV SCREENING [code [facility] of Test = HIV SCREENING] Medicine Future Scheduled FLU VACCINE > 6 [facility] C ollege of Test MONTHS [code = FLU Medicine VACCINE > 6 MONTHS] Encounters Start End Encounter Admission Attending Care Care Encounter Source Date/Time Date/Time Type Type Clinicians Facility Department ID 2021-06-26 2021-06-26 Outpatient Erich FRYE [facility] [id number] [facility] 07:15:00 07:15:00 FAY [id number] ity of [facility] 2021-06-25 2021-06-25 Telephone Uday RIJUAN [id number] Univers 00:00:00 00:00:00 [facility] 350.1.13.10 it y of [facility] 4.2.7.2.686 Kit as FRANCISCO?BLEA [phone] Ct jamel KNEY [address] [place] MEDICAL OFFICE BUILDING 2021-06-25 2021-06-25 Orders Doctor GOMEZ 1.2.840.114 [id number] Univers 00:00:00 00:00:00 Only Unassigned, GURVINDER 350.1.13.10 ity of [place] [facility] 4.2.7.2.686 Kit as [phone] [facility] [address] [place] 2021-01-09 2021-01-09 Orders Doctor GOMEZ 1.2.840.114 [id number] Univers 00:00:00 00:00:00 Only Unassigned, GURVINDER 350.1.13.10 ity of [place] [facility] 4.2.7.2.686 Kit as [phone] [facility] [address] [place] 2020-12-19 2020-12-19 Orders Doctor GOMEZ 1.2.840.114 [id number] Univers 00:00:00 00:00:00 Only Unassigned, GURVINDER 350.1.13.10 ity of [place] [facility] 4.2.7.2.686 Kit as [phone] [facility] [address] [place] 2020-06-19 2020-06-19 Orders Doctor GOMEZ 1.2.840.114 [id number] Univers 00:00:00 00:00:00 Only Unassigned, GURVINDER 350.1.13.10 ity of [place] [facility] 4.2.7.2.686 Kit as [phone] [facility] [address] [place] 2020-05-16 2020-05-16 Patient Aaron [facility] 1.2.840.114 [id number] Univers 00:00:00 00:00:00 Outreach Afizan PRIMARY 350.1.13.10 i ty of [facility] [place] [phone] Ct dical [address] [place] [address] 2020-04-18 2020-04-18 Outpatient R UDAY [facility] [id number] Univers 08:00:00 08:19:46 FAY itflower [facility] 2020-04-18 2020-04-18 Outpatient UDAY [facility] [id number] Univers 08:00:00 08:00:00 FAY [id number] ity [facility] 2020-03-15 2020-03-15 Orders Doctor GOMEZ 1.2.840.114 [id number] Univers 00:00:00 00:00:00 Only Unassigned, GURVINDER 350.1.13.10 ity of [place] [facility] 4.2.7.2.686 Kit as [phone] [address] 2019-11-24 2019-11-24 Office [facility] 1.2.316.253 [id number] Univers 12:47:24 13:16:52 Visit [facility] 350.1.13.10 it y of Surgical 4.2.7.2.686 Kit as Specialti [phone] Ct dical es 198 [facility] 2019-11-24 2019-11-24 [facility] [id number] Univers 13:00:00 13:00:00 JEF [id number] ity [facility] 2019-11-24 2019-11-24 [facility] [id number] Univers 13:00:00 13:00:00 JEF y [facility] 2019-10-27 2019-10-27 Office [facility] 1.2.070.527 [id number] Univers 13:22:21 13:33:55 Visit [facility] 350.1.13.10 it y of Surgical 4.2.7.2.686 Kit as Specialti [phone] Ct dical es 198 [facility] 2019-10-27 2019-10-27 [facility] [id number] Univers 13:30:00 13:30:00 JEF [id number] ity [facility] 2019-10-27 2019-10-27 [facility] [id number] Univers 13:30:00 13:30:00 JEF ity of [facility] 2019-10-27 2019-10-27 Orders Doctor GOMEZ 1.2.840.114 [id number] Univers 00:00:00 00:00:00 Only Unassigned, GURVINDER 350.1.13.10 ity of [place] [facility] 4.2.7.2.686 Kit as [phone] [address] 2019-10-13 2019-10-13 Office [facility] [id number] Univers 13:37:49 13:52:37 Visit Jef Smith 350.1.13.10 it y of Surgical 4.2.7.2.686 Kit as Specialti [phone] Ct dical 198 [facility] 2019-10-13 2019-10-13 [facility] [id number] [id number]-20 Univers 13:45:00 13:45:00 JEF ity [facility] 2019-10-13 2019-10-13 [facility] [id number] Univers 13:45:00 13:45:00 [facility] 2019-09-29 2019-09-29 [facility] 1.2.840.114 [id number] Univers 14:58:33 23:59:00 Encounter Jef GANDHI 350.1.13.10 [place] [phone] [address] 2019-09-29 2019-09-29 Outpatient [facility] NUT [id number] Univers 00:00:00 00:00:00 JEF ity [facility] 2019-09-29 2019-09-29 Orders Doctor GOMEZ 1.2.840.114 [id number] Univers 00:00:00 00:00:00 Only Unassigned, GURVINDER 350.1.13.10 ity of [place] [facility] 4.2.7.2.686 Kit as [phone] [facility] [address] [place] 2019-09-23 2019-09-23 [facility] 1.2.840.114 [id number] Univers 11:26:00 23:59:00 Encounter Jef Gaviria 350.1.13.10 it[place] of [place] [phone] [facility] [address] [place] 2019-09-23 2019-09-23 Certified Hearing Instrument Dispenser Pham Rashid [facility] 1.2.8 40.114 [id number] Univers 11:26:13 11:41:13 Visit Jef Selby Melanie Khadra 350.1.13.10 ity of [place] 4.2.7.2.686 [facility] [phone] Ct dical nal 353 [facility] 2019-09-23 2019-09-23 Outpatient R [facility] [id number] Univers 11:30:00 11:30:00 [id number] ity [facility] 2019-09-23 2019-09-23 [facility] [id number] Univers 11:30:00 11:30:00 JEF ity [facility] 2019-09-21 2019-09-21 Orders Doctor GOMEZ 1.2.840.114 [id number] Univers 00:00:00 00:00:00 Only Unassigned, GURVINDER 350.1.13.10 ity of [place] [facility] 4.2.7.2.686 Kit as [phone] [facility] [address] [place] 2019-09-20 2019-09-20 Telephone [facility] 1.2.840.114 [id number] Univers 00:00:00 00:00:00 Jef [facility] 350.1.13.10 it y of Surgical 4.2.7.2.686 Kit as Specialti [phone] Ct dical es 198 [facility] 2019-09-14 2019-09-14 Telephone [facility] 1.2.840.114 [id number] Univers 00:00:00 00:00:00 Jef [facility] 350.1.13.10 it y of Surgical 4.2.7.2.686 Kit as Specialti [id number] Ct dical es 198 [facility] 2019-09-02 2019-09-02 Office Basil Darby [facility] 1.2.840.114 [id number] Univers 15:30:01 16:18:10 Visit Jef [facility] 350.1.13.10 ity of Surgical 4.2.7.2.686 Kit as Specialti [phone] Ct dical es 198 [facility] 2019-09-02 2019-09-02 Outpatient R SOLA [facility] [id number] Univers 15:45:00 15:45:00 JEF [id number] ity [facility] 2019-09-02 2019-09-02 Outpatient R SOLA [facility] [id number] Univers 15:45:00 15:45:00 JEF flower [facility] 2019-08-20 2019-08-20 Telephone Sola [facility] 1.2.840.114 [id number] Univers 00:00:00 00:00:00 Jef Navarro [facility] 350.1.13.10 it y of Surgical 4.2.7.2.686 Kit as Specialti [phone] Ct dical es 198 [facility] 2019-08-19 2019-08-19 Outpatient R SOLA [facility] [id number] Univers 09:30:00 09:30:00 JEF [id number] ity [facility] 2019-08-19 2019-08-19 Outpatient R SOLA [facility] [id number] Univers 09:30:00 09:30:00 [facility] 2019-08-19 2019-08-19 Office [facility] 1.2.838.611 [id number] Univers 09:05:30 09:27:59 Visit Jef Navarro [facility] 350.1.13.10 it y of Surgical 4.2.7.2.686 Kit as Specialti [phone] Ct dical es 198 [facility] 2019-08-19 2019-08-19 Orders Doctor GOMEZ 1.2.840.114 [id number] Univers 00:00:00 00:00:00 Only Unassigned, GURVINDER 350.1.13.10 ity of [place] [facility] 4.2.7.2.686 Kit as [id number] [address] 2019-07-12 2019-07-12 Outpatient R LEVI, [facility] [id number] Univers 10:15:00 10:15:00 DENISE [id number] [facility] 2019-07-12 2019-07-12 Outpatient R GURMEET [facility] [id number] Univers 10:15:00 10:15:00 DENISE flower [facility] 2019-07-12 2019-07-[address] [facility] 1.2.840.114 [id number] Univers 09:50:49 10:05:49 ne Visit Denisekei Gaviria 350.1.13.10 it[place] of [place].2.[place] [phone] Ct dical nal [address] [place] [address] 2019-07-08 2019-07-08 Outpatient R UDAY [facility] [id number] Univers 09:30:00 09:30:00 FAY [id number] [facility] 2019-07-08 2019-07-08 Outpatient R UDAY [facility] [id number] Univers 09:30:00 09:30:00 FAY [facility] 2019-07-08 2019-07-08 [facility] 1.2.840.114 [id number] Univers 07:07:56 07:22:56 ne Visit Fay Khadra 350.1.13.10 it[place] of [place] [phone] [facility] 044 [facility] 2019-06-28 2019-06-28 [facility] 1.2.840.114 [id number] Univers 10:18:26 10:35:09 ne Visit Denise Gaviria 350.1.13.10 it[place] of [place]2.[place] [phone] Ct dical nal 377 [facility] 2019-06-28 2019-06-28 Outpatient R GURMEET [facility] [id number] Univers 10:15:00 10:15:00 DENISE ity [facility] 2019-06-28 2019-06-28 Outpatient R GURMEET [facility] [id number] Univers 10:15:00 10:15:00 DENISE itflower [facility] 2019-06-17 2019-06-17 Telephone [facility] 1.2.665.130 [id number] Univers 00:00:00 00:00:00 Fay Health 350.1.13.10 it y of [place] 4.2.7.2.686 Kit as Professio [phone] [address] 2019-06-17 2019-06-17 Telephone [facility] 1.2.840.114 [id number] Univers 00:00:00 00:00:00 Denise Gaviria 350.1.13.10 i ty of [place] [phone] [facility] 188 [facility] 2019-06-14 2019-06-16 Emergency Vale Vásquez [facility] 1.2.840. 114 [id number] Univers 10:43:11 13:38:00 Mark Carballo 350.1.13.10 ity of [place].2.686 [place] [phone] [facility] [address] [place] [address] 2019-06-14 2019-06-16 Outpatient X MRAK [facility]O [facility] [id number] Univers 10:43:11 13:38:00 ity [facility] 2019-06-14 2019-06-14 Telephone [facility] 1.2.434.373 [id number] Univers 00:00:00 00:00:00 Fay Smith 350.1.13.10 it y of [place] 4.2.7.2.686 Kit as Professio [phone] [address] 2019-06-11 2019-06-11 Telephone [facility] 1.2.064.227 [id number] Univers 00:00:00 00:00:00 Fay Gaviria 350.1.13.10 i ty of [place] [phone] [address] 2019-01-13 2019-01-13 [facility] [id number] Univers 09:15:00 10:00:50 FAY moses [facility] 2018-11-04 2018-11-04 Office TOMMY Salazar 1.2.840.114 [id number] [facility] 08:40:16 10:40:16 Visit Omayra AMBULATOR 350.1.13.21 College Viktoria Y 0.2.7.2.686 of [phone] [facility] samira 325 e 2018-10-02 2018-10-02 Orders Doctor GOMEZ 1.2.840.114 [id number] [facility] 00:00:00 00:00:00 Only Unassigned, GURVINDER 350.1.13.10 ity [facility] [place] [facility] 4.2.7.2.686 Kit as [phone] [facility] [address] [place] Results Test Description Test Time Test Comments Results Result Sourc e Comments XR CHEST 1 VW 2019-09-08 HISTORY: Preop. Univer sity of 6 FINDINGS: 2 AP views [place] 16:56:49 of the chest showed Branc h upper normal cardiac size.. Noacute pneumonia, pleural effusion, pulmonary congestion detected. Displaced fractures of posterior left fifth, sixth, seventh, eighth ribsnoted without any appreciable callus formation. CONCLUSIONS: No signs of acute cardiopulmonary disease. [facility], Radiant Results Inft User - 09/23/2019 11:57 AM CDTHISTORY: Preop.FINDINGS: 2 AP views of the chest showed upper normal cardiac size.. Noacute pneumonia, pleural effusion, pulmonary congestion detected. Displaced fractures of posterior left fifth, sixth, seventh, eighth ribsnoted without any appreciable callus formation.CONCLUSION S: No signs of acute cardiopulmonary disease. Basic Metabolic Panel (NA, K, CL, CO2, GLUCOSE, BUN, 2019-06 11:24:00 CREATININE, CA) Test Item Value Reference Range Interpretation Comme nts NA (test code = 3237123961) 133 mmol/L 135-145 L K (test code = 3944922106) 3.7 mmol/L 3.5-5 CL (test code = 7131966838) 95 mmol/L 98-108 L CO2 TOTAL (test code = 6713450485) 28 mmol/L 23-31 AGAP (test code = 1805842101) 2-16 BUN (test code = 9143781577) 25 mg/dL 7-23 H GLUCOSE (test code = 5912224903) 111 mg/dL 70-110 H CREATININE (test code = 1.03 mg/dL 0.6-1.25 6571818093) CALCIUM (test code = 1051050775) 8.6 mg/dL 8.6-10.6 eGFR Calculation (Non- mL/min/1.73m2 Polish) (test code = 9333700595) eGFR Calculation ( mL/min/1.73m2 Polish) (test code = 2316065416) FANTA (test code = FANTA) Association of Glomerular Filtration Rate (GFR) and Staging of Kidney Disease* + +-------- + ------+| GFR (mL/min/1.73 m2) ?| With Kidney Damage ?| ?Without Kidney Damage+ +-- + +| ?>90 ?| ?Stage one ?| ? Normal ?+ +------- + -------+| ?60-89 ?| ?Stage two ?| ? Decreased GFR ? + +-------- + ------+| ?30-59 ?| ?Stage three ?| ? Stage three ? + +-------- + ------+| ?15-29 ?| ?Stage four ? | ? Stage four ?+ +------- + -------+| ?<15 (or dialysis) ? ?| ?Stage five ? | ? Stage five ?+ +------- + -------+ *Each stage assumes the associated GFR level has been in effect for at least three months. ?Stages 1 to 5, with or without kidney disease, indicate chronic kidney disease. Notes: Determination of stages one and two (with eGFR >59mL/min/1.73 m2) requires estimation of kidney damage for at least three months as defined by structural or functional abnormalities of the kidney, manifested by either:Pathological abnormalities or Markers of kidney damage (including abnormalities in the composition of the blood or urine or abnormalities in imaging tests). Lab Interpretation (test code = Abnormal 90412-8) [facility] WITH [id number] 10:52:00 Test Item Value Reference Range Interpretation Comments WBC (test code = See_Comment [Automated 6690-2) message] The sy stem which generated this result transmitted reference range : 4.20 - 10.70 10*3/?L. The reference range was not used to interpret this result as normal/abnormal . RBC (test code = See_Comment [Automated 789-8) message] The sy stem which generated this result transmitted reference range : 4.26 - 5.52 10*6/?L. The reference range was not used to interpret this result as normal/abnormal . HGB (test code = 13.1 g/dL 12.2-16.4 718-7) HCT (test code = 38.4 % 38.4-49.3 4544-3) MCV (test code = 87.7 fL 81.7-95.6 787-2) MCH (test code = 29.9 pg 26.1-32.7 785-6) MCHC (test code = 34.1 g/dL 31.2-35 786-4) RDW-SD (test code = 39.2 fL 38.5-51.6 67128-9) RDW-CV (test code = 12.2 % 12.1-15.4 788-0) PLT (test code = See_Comment [Automated 777-3) message] The sy stem which generated this result transmitted reference range : 150 - 328 10*3/ ?L. The reference r dave was not used to interpret this result as normal/abnormal . MPV (test code = 9.7 fL 9.8-13 L 32930-1) NRBC/100 WBC (test See_Comment [Automat ed code = 0472494986) message] The system which generated this result transmitted reference range : 0.0 - 10.0 /100 WBCs. The refer ence range was not u sed to interpret th is result as normal/abnormal . NRBC x10^3 (test code <0.01 See_Comment [Auto mated = 8098760681) message] The s ystem which generated this result transmitted reference range : 10*3/?L. The reference range was not used to interpret this result as normal/abnormal . GRAN MAT (NEUT) % 68.3 % (test code = 770-8) IMM GRAN % (test code 0.30 % = 4730523452) LYMPH % (test code = 16.4 % 736-9) MONO % (test code = 12.7 % 5905-5) EOS % (test code = 1.9 % 713-8) BASO % (test code = 0.4 % 706-2) GRAN MAT x10^3(ANC) 4.56 10*3/uL 1.99-6.95 (test code = 2013860200) IMM GRAN x10^3 (test <0.03 0-0.06 code = 6045360021) LYMPH x10^3 (test code 1.10 10*3/uL 1.09-3.23 = 731-0) MONO x10^3 (test code 0.85 10*3/uL 0.36-1.02 = 742-7) EOS x10^3 (test code = 0.13 10*3/uL 0.06-0.53 711-2) BASO x10^3 (test code 0.03 10*3/uL 0.01-0.09 = 704-7) Lab Interpretation Abnormal (test code = 06625-0) [facility] 02:40:00 Test Item Value Reference Range Interpretation Comments APPEARANCE (test code = Clear Clear 2904980668) COLOR (test code = Yellow Yellow 2450836750) PH (test code = 4.8-8.0 5227413618) SP GRAVITY (test code = 1.003-1.030 H 1005960502) GLU U QUAL (test code = Normal Normal 5086148156) BLOOD (test code = Negative Negative 9706501172) KETONES (test code = Negative Negative 9768069001) PROTEIN (test code = Negative Negative 2887-8) UROBILIN (test code = 4.0 mg/dL Normal A 8252804962) BILIRUBIN (test code = Negative Negative 1818923702) NITRITE (test code = Negative Negative 9906595765) LEUK NIKKI (test code = Negative Negative 3271704263) RBC/HPF (test code = <1 See_Comment [Autom ated message] 1310276974) The system [employer] generated this result transmit raz reference range : 0 - 3 HPF. The refe rence range was not u sed to interpret th is result as normal/abnormal . WBC/HPF (test code = See_Comment [Autom ated message] 8402036103) The system [employer] generated this result transmit raz reference range : 0 - 5 HPF. The refe rence range was not u sed to interpret th is result as normal/abnormal . BACTERIA (test code = Negative Negative 9969092320) MUCOUS (test code = Slight Negative LPF A 4788682819) SQ EPITH (test code = <1 HPF 5994135835) Lab Interpretation (test Abnormal code = 42162-2) [facility] - DRUG SCREEN [id number] 02:40:00 Test Item Value Reference Range Interpretation Comments BENZO U (test code = Negative Negative 0055605519) GOKUL U (test code = Negative Negative 0950611795) AMPHET (test code = Negative Negative 9139709422) THC (test code = Negative Negative 8020180344) METHADONE (test code = Negative Negative 7742496521) Meth U (test code = Negative Negative 2139718048) OPIATES (test code = Presumptive Positive Negative A 9635983252) Cocaine Metabolite (test Negative Negative code = 8345426831) PROPOXY (test code = Negative Negative 2391100052) Tric U (test code = Negative Negative 8266569327) PCP (test code = Negative Negative 7817936359) OXYCOD (test code = Negative Negative 5070571818) FANTA (test code = FANTA) Urine Drug Cutoff Ranges Benzodiazepines: ? ? 150 ng/mLBarbiturates: ?200 ng/mLAmphetamine: ? 500 ng/mLCannabinoids: ?50 ?ng/mLMethadone: ? 200 ng/mLMethamphetamine: ? ? 500 ng/mL Opiates: ? 100 ng/mL or 2000 ng/mLCocaine: ? 150 ng/mLPropoxyphene: ?300 ng/mLTricyclics: ?300 ng/mLOxycodone: ? 100 ng/mLPCP: ? 25 ?ng/mL The results are to be used only for medical (i.e., treatment) purposes. Unconfirmed screening results must not be used for non-medical purposes (e.g., employment testing, legal testing). Lab Interpretation (test Abnormal code = 68658-8) [facility] 2+ VW [id number] 20:49:29 Changes of osteoarthrosis EXAM: Left shoulder 2 views HISTORY: Shoulder pain TECHNIQUE:Internal and external rotation views of the shoulder areobtained. FINDINGS:No acute fracture or dislocation is identified. Degenerativechanges are seen in the AC joint as well as in the glenohumeral joints inthe form of small osteophytes. Degenerative changes are also seen at theinsertion site of the rotator cuff tendon. [facility], Radiant Results Inft User - 06/14/2019 3:50 PM CDTEXAM: Left shoulder 2 viewsHISTORY: Shoulder painTECHNIQUE:Internal and external rotation views of the shoulder areobtained.FINDINGS:No acute fracture or dislocation is identified. Degenerativechanges are seen in the AC joint as well as in the glenohumeral joints inthe form of small osteophytes. Degenerative changes are also seen at theinsertion site of the rotator cuff tendon.IMPRESSIONChanges of osteoarthrosisUnFort Duncan Regional Medical CenterPOCT [id number] 19:17:00 Test Item Value Reference Range Interpretation Comments POCT Creatinine (test code = 0.8 mg/dL 0.6-1.3 7957428238) Lab Interpretation (test code = Normal 22392-5) [facility] HospitalGlycosylated Hemoglobin (A1C)2019-06-14 19:17:00 Test Item Value Reference Interpretation Comments Range HGB A1C (test code = See_Comment [Autom ated 4548-4) message] The system which generated this result transmitted reference range : 4.0 - 6.0 % NGSP. The reference range was not used to interpret this result as normal/abnormal . FANTA (test code = %A1C (NGSP) FANTA) Interpretation (ADA)4.8-5.6 ? ? Normal or (Non-Diabetic Range)5.7-6.4 ? ? Increased Risk (Pre-Diabetic)>6.5 ?Diabetes Indicated Lab Interpretation Normal (test code = 83504-0) [facility] thorax with [id number] 18:42:54 1. Images presented for interpretation at 1330 hours.2. No pleural effusion or pneumothorax in the chest.3. Minimal cortical irregularity of the left lateral fourth and sixth ribspossibly partial fractures age indeterminate.4. Mild nodular atelectasis in both lower lobes.5. Normal alignment of the thoracic spine. The sternum is intact. RL: 5611 END OF REPORT Ordering Physician: VALE VÁSQUEZ Clinical Indication: Rib fx suspected, post trauma Additional Clinical Information: Comparison: None Technique: CT scan of the chest is obtained with IV contrast. CT Scan wasperformed using ALARA principles. ? Images are presented for interpretationat 1330 hours Findings: The lung windows shows mild nodular atelectasis in both lowerlobes. There is no effusion or pneumothorax. The bone windows shows a very mild cortical buckling of the left lateralfourthand sixth ribs without a fracture line. No definite rib fracturesare seen on the right. The heart size is normal. There is no pericardial effusion. Upper liver spleen enhances normally. There has been previous gastricsurgery. Gallbladder is absent.The sagittal images demonstrates normal alignment of the thoracic spine. [facility], [facility]iant Results Inft User - 06/14/2019 1:44 PM CDTOrdering Physician: VALE VÁSQUEZClinical Indication: Rib fx suspected, post trauma Additional Clinical Information:Comparison: NoneTechnique: CT scan of the chest is obtained with IV contrast. CT Scan wasperformed using ALARA principles. Images are presented for interpretationat 1330 hoursFindings: The lung windows shows mild nodular atelectasis in both lowerlobes. There is no effusion or pneumothorax.The bone windows shows a very mild cortical buckling of the left lateralfourth and sixth ribs without a fracture line. No definite rib fracturesare seen on the right.The heart size is normal. There is no pericardial effusion.Upper liver spleen enhances normally. There has been previous gastricsurgery. Gallbladder is absent.The sagittal images demonstrates normal alignment of the thoracic spine.IMPRESSION1. Images presented for interpretation at 1330 hours.2. No pleural effusion or pneumothorax in the chest.3. Minimal cortical irregularity of the left lateral fourth and sixth ribspossibly partial fractures age indeterminate.4. Mild nodular atelectasis in both lower lobes.5. Normal alignment of the thoracic spine. The sternum is intact.RL: 5611END OF REPORT [facility] COVID-19 [id number] 17:49:00 Test Item Value Reference Range Interpretation Comments SARS-CoV-2 (test code = Not Detected Not Detected 26931-8) FANTA (test code = FANTA) ID NOW COVID-19 Assay is an isothermal nucleic acid amplification test intended for the qualitative detection of nucleic acid from SARS-CoV-2 viral RNA in nasopharyngeal (MONITOR TECH) specimens. It is used under Emergency Use Authorization (EUA) by FDA. The limit of detection (LOD) of the assay is 125 Genome Equivalents/mL. A positive result is indicative of the presence of SARS-CoV-2 RNA. ?Clinical correlation with patient history and other diagnostic information is necessary to determine patient infection status. A negative (Not Detected) result does not preclude SARS-CoV-2 infection and should not be used as the sole basis for patient management decisions. ? Invalid: Please collect a new specimen for repeat patient testing if clinically indicated. Lab Interpretation Normal (test code = 42649-7) [facility] HospitalType [facility] Screen - ONCE [id number] 16:59:42 Test Item Value Reference Range Interpretation Comments ABO & RH (test code A Positive Performe d at [facility] = 20) Laboratory Serv [facility] [place], [place] [address]Toll Free: [phone] A No. [id number] IAT (test code = Negative Performed a t [facility] 1185) Laboratory [facility] [address] [place], [place] [id number] Free: [phone] A No. [id number] [facility] HospitalBasi Metabolic Panel (NA, K, CL, CO2, GLUCOSE, BUN, CREATININE, CA)2019-06-14 16:57:00 Test Item Value Reference Range Interpretation Comments NA (test code = 133 mmol/L 135-145 L 8792905173) K (test code = 3.8 mmol/L 3.5-5 8910095469) CL (test code = 94 mmol/L 98-108 L 9904119364) CO2 TOTAL (test code = 26 mmol/L 23-31 1089500477) AGAP (test code = 2-16 6496955061) BUN (test code = 13 mg/dL 7-23 8467698833) GLUCOSE (test code = 144 mg/dL 70-110 H 4180762759) CREATININE (test code = 0.80 mg/dL 0.6-1.25 0154950024) CALCIUM (test code = 8.8 mg/dL 8.6-10.6 8467544560) eGFR Calculation mL/min/1.73m2 (Non-) (test code = 4187760697) eGFR Calculation mL/min/1.73m2 () (test code = 6249778951) FANTA (test code = FANTA) Association of Glomerular Filtration Rate (GFR) and Staging of Kidney Disease* + --+ --+ ------+| GFR (mL/min/1.73 m2) ?| With Kidney Damage ?| ?Without Kidney Damage+ --------+ --------+ +| ?>90 ?| ?Stage one ?| ? Normal ?+ ---+ ---+ -------+| ?60-89 ?| ?Stage two ?| ? Decreased GFR ? + --+ --+ ------+| ?30-59 ?| ?Stage three ?| ? Stage three ? + --+ --+ ------+| ?15-29 ?| ?Stage four ? | ? Stage four ?+ ---+ ---+ -------+| ?<15 (or dialysis) ? ?| ?Stage five ? | ? Stage five ?+ ---+ ---+ -------+ *Each stage assumes the associated GFR level has been in effect for at least three months. ?Stages 1 to 5, with or without kidney disease, indicate chronic kidney disease. Notes: Determination of stages one and two (with eGFR >59mL/min/1.73 m2) requires estimation of kidney damage for at least three months as defined by structural or functional abnormalities of the kidney, manifested by either:Pathological abnormalities or Markers of kidney damage (including abnormalities in the composition of the blood or urine or abnormalities in imaging tests). Lab Interpretation Abnormal (test code = 10820-6) [facility] HospitalHepatic Function Panel (ALB, T.PRO, BILI T, BU/BC, ALT, AST, ALK PHOS)2019-06-14 16:57:00 Test Item Value Reference Range Interpretation Comments TOTAL BILI (test code = 7383762794) 1.3 mg/dL 0.1-1.1 H BILI UNCON (test code = 8359843371) 1.3 mg/dL 0.1-1.1 H BILI CONJ (test code = 0449207623) 0.0 mg/dL 0-0.3 T PROTEIN (test code = 3450837597) 8.0 g/dL 6.3-8.2 ALBUMIN (test code = 8739924773) 4.8 g/dL 3.5-5 ALK PHOS (test code = 1712385809) 116 U/L 34-122 ALTv (test code = 1742-6) 70 U/L 5-50 H AST(SGOT) (test code = 4004676165) 62 U/L 13-40 H Lab Interpretation (test code = Abnormal 07044-6) [facility] HospitalLipase [id number] 16:57:00 Test Item Value Reference Range Interpretation Comments LIPASE (test code = 7058347672) 91 U/L 0-220 Lab Interpretation (test code = Normal 98063-3) [facility] HospitalTroponin [id number] 16:57:00 Test Item Value Reference Range Interpretation Comments TROPONIN I (test 0.003 ng/mL See_Comment [Automated code = 7095858291) message] The system which generated this result transmitted reference range : <=0.034. The reference range was not used to interpret this result as normal/abnormal . FANTA (test code = Equal or Less than FANTA) 0.034 ng/ml---Normal ?Note: Cardiac troponin begins to rise 3-4 hours after the onset of ischemia. Repeat in 4-6 hours if the sample was drawn within 3-4 hours of the onset of the symptom and found normal. Between 0.035 and 0.120 ng/mL--- Borderline. Questionable myocardial injury or necrosis ? ?Note: Serial measurement may be necessary to confirm or exclude the diagnosis of myocardial injury or necrosis; Clinical correlation (symptoms, EKGs, imaging studies, and others) required; Repeat in 4-6 hours if clinically indicated. ? Equal or Higher than 0.121 ng/mL---Abnormal. Myocardial Injury or Necrosis Likely ? Biotin has been reported to cause a negative bias, interpret results relative to patient's use of biotin. ? Lab Interpretation Normal (test code = 95230-0) [facility] HospitalN-TERMINAL [id number] 16:57:00 Test Item Value Reference Range Interpretation Comments NT-proBNP (test code 152 pg/mL See_Comment H [Autom ated = 5726115746) message] The system which generated this result transmitted reference range : <=125. The reference range was not used to interpret this result as normal/abnormal . FANTA (test code = FANTA) Biotin has been reported to cause a negative bias, interpret results relative to patient's use of biotin. Lab Interpretation Abnormal (test code = 92602-4) [facility] HospitalProthrombin Time (PT) / [id number] 16:47:00 Test Item Value Reference Range Interpretation Comments PROTIME PATIENT (test See_Comment [Auto mated message] code = 5964-2) The system wh ich generated this result transmitted ref erence range: 12.0 - 1 4.7 Seconds. The re ference range was not u sed to interpret this result as normal/abnor mal. INR (test code = 6301-6) Nor mal INR <1.1; Warfarin Therap eutic range 2.0 to 3. 0 or 2.5 to 3.5, dep ending upon the indica tions. Lab Interpretation (test Normal code = 37540-8) [facility] HospitalaPTT2020-04-06 16:46:00 Test Item Value Reference Range Interpretation Comments APTT Patient (test See_Comment [Automat ed code = 3173-2) message] The system which generated this result transmitted reference range : 23 - 38 Seconds . The reference range was not used to interpr et this result as normal/abnormal . FANTA (test code = FANTA) The [facility] patient population mean normal value for aPTT is 30 seconds. Lab Interpretation Normal (test code = 27208-5) [facility] HospitalCT LUMBAR SPINE WO [id number] 16:44:57 No acute fracture or traumatic malalignment of the lumbar spine. CT LUMBAR SPINE WO CONTRAST HISTORY: L/S-spine fx, traumatic TECHNIQUE: ?Contiguous thin section axial images were obtained of thelumbar spine. ?Sagittal and coronal reformatted images were generated.Images were reviewed in soft-tissue and bone detail. . ? COMPARISON: None. FINDINGS: For the purposes of this dictation, the last well-defined interspace iscalled L5-S1.There is anatomic alignment of the lumbar spine. ?Lumbar vertebrae and intervertebral discs are normal in height. ? Mild degenerative changes. No acute fracture or traumatic malalignment of the lumbar spine. Left hip arthroplasty seen on interior wall assembler. [facility], Radiant Results InftUser - 06/14/2019 11:46 AM CDTCT LUMBAR SPINE WO CONTRASTHISTORY: L/S-spine fx, traumatic TECHNIQUE:Contiguous thin section axial images were obtained of thelumbar spine. Sagittal and coronal reformatted images were generated.Images were reviewed in soft-tissue and bone detail. . COMPARISON: None.FINDINGS: For the purposes of this dictation, the last well-defined interspace iscalled L5- S1.There is anatomic alignment of the lumbar spine. Lumbar vertebrae and intervertebral discs are normal in height. Mild degenerative changes. No acute fracture or traumatic malalignment of the lumbar spine. Left hip arthroplasty seen on interior wall assembler.IMPRESSIONNo acute fracture or traumatic malalignment of the lumbar spine.[facility] HospitalCT THORACIC SPINE WO CONTRAST 2019-06-14 16:41:35 Mild to moderate anterior T5 vertebral body compression deformity/fracture,technically age indeterminate. Correlate with point tenderness. Givenassociated right greater than left lucencies in the T5 ve rtebral body,recommend further assessment with MRI of the thoracic spine with andwithout contrast. CT THORACIC SPINE WO CONTRAST HISTORY: T/L-spine trauma, minor-mod, low back pain TECHNIQUE: ? Contiguous thin section axial images were obtained of the thoracic spine. Sagittal and coronal reformatted images were generated. Images werereviewed in soft-tissue and bone detail. ? COMPARISON: None. FINDINGS: Anatomic alignment of the thoracic spine. ?Mild to moderate anterior T5 vertebral body compressiondeformity/fracture.Nonspecific lucencies in T5 vertebral body. Mild height loss of T6, T7, M3wmdmbtotq bodies. T11 superior vertebral body endplate concavity mayreflect a Schmorl's node. ?Multilevel degenerative changes. No overt thoracic canal stenosis notingintraspinal contents are better assessed with MRI.Dependent lung atelectasis. Multiple left rib fractures. For intrathoracicfindings, see separa te report of chest CT which was performed at the sametime but interpreted separately. Surgical changes of the stomach. Cholecystectomy. Left hip arthroplasty onscout. [facility], [facility] Results Inft User - 06/14/2019 11:42 AM CDTCT THORACIC SPINE WO CONTRASTHISTORY: T/L-spine trauma, minor-mod, low back pain TECHNIQUE: Contiguous thin section axial images were obtained of the thoracic spine. Sagittal and coronal reformatted images were generated. Images werereviewed in soft-tissue and bone detail. COMPARISON: None.FINDINGS: Anatomic alignment of the thoracic spine. Mild to moderate anterior T5 vertebralbody compression deformity/fracture.Nonspecific lucencies in T5 vertebral body. Mild height loss of T6, T7, F6ppmseqcwe bodies. T11 superior vertebral body endplate concavity mayreflect a Schmorl's node. Multilevel degenerative changes. No overt thoracic canal stenosis notingintraspinal contents are better assessed with MRI.Dependent lung atelectasis. Multiple left rib fractures. For intrathoracicfindings, see separate report of chest CT which was performed at the sametime but interpreted separately. Surgical changes of the stomach. Cholecystectomy. Left hip arthroplasty onscout.IMPRESSIONMild to moderate anterior T5 vertebral body compression deformity/fracture,technically age indeterminate. Correlate with point tenderness. Givenassociated right greater than left lucencies in the T5 vertebral body,recommend further assessment with MRI of the thoracic spine with andwithout contrast.[facility] HospitalCT abdomen pelvis with [id number] 16:39:59 Left-sided posterior 5 through eighth rib fractures. No acute findings areseen in the abdomen and pe lvis. Multiple midline anterior abdominal wall hernias, as described above, andbest seen on 24:75. EXAM: CT ABDOMEN AND PELVIS WITH CONTRAST HISTORY: 59-year-old male with abdominal trauma. COMPARISON:None. DOSE: Total exam DLP 1922 mGy-cm TECHNIQUE AND FINDINGS: Contiguous axial imaging was performed after theuncomplicated administration of 120 cc of intravenous Omnipaque contrast.Coronal and sagittal reconstructions were obtained. FINDINGS:LOWER THORAX: The visualized lung bases show dependent atelectasis andtrace effusions bilaterally. LIVER: No focal hepatic lesions. Patent hepatic and portal veins. Nobiliary ductal dilatation. GALLBLADDER AND BILIARY TREE: Prior cholecystectomy. SPLEEN: No splenomegaly or focal lesions. PANCREAS: No ductal dilation or focal lesions. ADRENAL GLANDS: No adrenal nodules. KIDNEYS: No hydronephrosis, stones, or solid lesions. PERITONEUM AND RETROPERITONEUM: No f ree air or free fluid. LYMPH NODES: No lymphadenopathy is seen. GI TRACT: Postsurgical changes are seen in the stomach. Bowel anastomosisis also seen in the right upper quadrant. No evidence of dilatedbowelloops, appendicitis, or diverticulitis. PELVIS/BLADDER: The urinary bladder and the prostate appear normal. VESSELS: Unremarkable. BONES AND SOFT TISSUES: Left-sided 5-8 posterior rib fractures are seen(20:26 and 22:131). Degenerative changes are seen in the spine.Degenerative changes are seen inthe right hip. Left hip prosthesis isseen. Multiple anterior abdominal wall hernias are seen (20:74 containingthe part of the transverse colon) a fat-containing hernia at 20:86, a largefat-containing he rnia on 20:106, from a defect measuring 4.4 cm. [facility], [facility] Results Inft User - 06/14/2019 11:41 AM CDTEXAM: CT ABDOMEN AND PELVIS WITH CONTRASTHISTORY: 59-year-old male with abdominal trauma.COMPARISON: None.DOSE: Total exam DLP 1922 mGy-cmTECHNIQUE AND FINDINGS: Contiguous axial imaging was performed after theuncomplicated administration of 120 cc of intravenous Omnipaque contrast.Coronal and sagittal reconstructions were obtained.FINDINGS:LOWER THORAX: The visualized lung bases show dependent atelectasis andtrace effusions bilaterally. LIVER: No focal hepatic lesions. Patent hepatic and portalveins. Nobiliary ductal dilatation.GALLBLADDER AND BILIARY TREE: Prior cholecystectomy.SPLEEN: No splenomegaly or focal lesions.PANCREAS: No ductal dilation or focal lesions.ADRENAL GLANDS: No adrenal nodules.KIDNEYS: No hydronephrosis, stones, or solid lesions.PERITONEUM AND RETROPERITONEUM: No free air or free fluid.LYMPH NODES: No lymphadenopathy is seen.GI TRACT: Postsurgical changes are seen in the stomach. Bowel anastomosisis also seen in the right upper quadrant. No evidence of dilated bowelloops, appendicitis, or diverticulitis.PELVIS/BLADDER: The urinary bladder and the prostate appear norm al.VESSELS: Unremarkable.BONES AND SOFT TISSUES: Left-sided 5-8 posterior rib fractures are seen(20:26 and 22:131). Degenerative changes are seen in the spine.Degenerative changes are seen in the righthip. Left hip prosthesis isseen. Multiple anterior abdominal wall hernias are seen (20:74 containingthe part of the transverse colon) a fat-containing hernia at 20:86, a largefat-containing hernia on 20:106, from a defect measuring 4.4 cm.IMPRESSIONLeft-sided posterior 5 through eighth rib fractures. No acute findings areseen in the abdomen and pelvis.Multiple midline anterior abdominal wall hernias,as described above, andbest seen on 24:75.[facility] HospitalCT CERVICAL SPINE WO [id number] 16:29:19 1. No acute fracture or traumatic malalignment of the cervical spine. EXAMINATION: CT CERVICAL SPINE WO CONTRAST HISTORY: C-spine fx, traumatic COMPARISON: None available. TECHNIQUE: Routine unenhanced CT of the cervical spine. ? FINDINGS: No acute fracture of the cervical spine. No traumatic malalignment of thecervical spine. ? This examination does not assess for ligamentous injuryor stability.Mild degenerative changes with right C3-C4 subarticular zone and neuralforaminal narrowing.Incomplete fusion of the posterior C1 arch. [facility], [facility] Inft 06/14/2019 11:30 AM CDTEXAMINATION: CT CERVICAL SPINE WO CONTRASTHISTORY: C-spine fx, traumatic COMPARISON: None available. TECHNIQUE: Routine unenhanced CT of the cervical spine. FINDINGS:No acute fracture of the cervical spine. No traumatic malalignment of thecervical spine. This examination does not assess for ligamentous injuryor stability.Mild degenerative changes with right C3-C4 subarticular zone and neuralforaminal narrowing.Incomplete fusion of the posterior C1 arch.IMPRESSION1. No acute fracture or traumatic malalignment of th e cervical spine.[facility] HospitalCBC WITH DIFFERENTIAL 2019-06-14 16:23:00 Test Item Value Reference Range Interpretation Comments WBC (test code = See_Comment [Automated 0371-2) message] The sy stem which generated this result transmitted reference range : 4.20 - 10.70 10*3/?L. The reference range was not used to interpret this result as normal/abnormal . RBC (test code = See_Comment [Automated 159-8) message] The sy stem which generated this result transmitted reference range : 4.26 - 5.52 10*6/?L. The reference range was not used to interpret this result as normal/abnormal . HGB (test code = 14.3 g/dL 12.2-16.4 718-7) HCT (test code = 43.1 % 38.4-49.3 4544-3) MCV (test code = 87.8 fL 81.7-95.6 787-2) MCH (test code = 29.1 pg 26.1-32.7 785-6) MCHC (test code = 33.2 g/dL 31.2-35 786-4) RDW-SD (test code = 37.7 fL 38.5-51.6 L 22771-6) RDW-CV (test code = 11.8 % 12.1-15.4 L 788-0) PLT (test code = See_Comment [Automated 777-3) message] The sy stem which generated this result transmitted reference range : 150 - 328 10*3/ ?L. The reference r dave was not used to interpret this result as normal/abnormal . MPV (test code = 9.4 fL 9.8-13 L 29237-2) NRBC/100 WBC (test See_Comment [Automat ed code = 2246752686) message] The system which generated this result transmitted reference range : 0.0 - 10.0 /100 WBCs. The refer ence range was not u sed to interpret th is result as normal/abnormal . NRBC x10^3 (test code <0.01 See_Comment [Auto mated = 2840889299) message] The s ystem which generated this result transmitted reference range : 10*3/?L. The reference range was not used to interpret this result as normal/abnormal . GRAN MAT (NEUT) % 75.2 % (test code = 770-8) IMM GRAN % (test code 0.40 % = 5838431319) LYMPH % (test code = 13.9 % 736-9) MONO % (test code = 9.6 % 5905-5) EOS % (test code = 0.4 % 713-8) BASO % (test code = 0.5 % 706-2) GRAN MAT x10^3(ANC) 7.26 10*3/uL 1.99-6.95 H (test code = 8222518166) IMM GRAN x10^3 (test 0.04 10*3/uL 0-0.06 code = 0992375773) LYMPH x10^3 (test code 1.34 10*3/uL 1.09-3.23 = 731-0) MONO x10^3 (test code 0.93 10*3/uL 0.36-1.02 = 742-7) EOS x10^3 (test code = 0.04 10*3/uL 0.06-0.53 L 711-2) BASO x10^3 (test code 0.05 10*3/uL 0.01-0.09 = 704-7) Lab Interpretation Abnormal (test code = 62742-2) [facility] [id number] 12:46:00Surgical Pathology Report Case: [id number] Authorizing Provider: Roel Barros Collected: 10/20/2018 1215 Ordering Location: [facility] Endoscopy Received: 10/20/2018 1546 Services Pathologist:Keturah Smith MD Specimen: Biopsy, Gastroesophageal Junction, GE Junction Bx A. GASTROESOPHAGEAL JUNCTION, BIOPSY: - JUNCTIONAL MUCOSA WITH ACTIVE INFLAMMATION AND ULCERATION (SEE COMMENT) - NEG ATIVE FOR INTESTINAL METAPLASIA/ JANE'S ESOPHAGUS - NEGATIVE FOR DYSPLASIA/ MALIGNANCY - GMS AND PAS STAINS, NEGATIVE FOR FUNGAL ELEMENTS - AFB STAIN NEGATIVE FOR ACID-FAST MICROORGANISMS - IMMUNOSTAIN FOR CMV, HSV1,HSV2, H.PYLORI ARE NEGATIVE Signing Pathologist Direct Phone Line: [phone] signed by Keturah Smith MD on 10/22/2018 at 12:46 [id number] post bariatric surgery, complication of bariatric procedures, abnormal weight gain, abdominal pain A single specimen is received with the appropriate requisition form identifying it as from the patient Martha Barcenas, MR number [id number], date of 1960.A single specimen is received in a formalin-filled container with the patient's identification sticker and labeled "gastroesophageal junction" and contains multiple pink-mcintosh soft tissue fragments measuring 0.1 to 0.2 cm each in greatest dimension and 0.7 cm in aggregate. All are submitted in A1. NS/ewPerformed.The interpretation of this case included the use of immunohistochemistry or special stains.Control Slides Examined: In-house known positive controls were evaluated along with the test tissue. These control slides run alongside of the patients sample show appropriate staining. Internal positive and negative controls when available are evaluated Immunohistochemistry technical testing was performed at [facility], Pathology Laboratory where it was developed and its performance characteristics were determined. It hasnot been cleared or approved by the U.S. Food and Drug Administration. The FDA has determined that such clearance or approval is not necessary. The test is used for clinical purposes. It should not be regarded as investigational or for research. This laboratory is certified under the Clinical Laboratory Improvement Amendments of 1988 (CLIA-88) as qualified to perform high complexity clinical laboratory testing.
[2021-10-24] MEDS: CEFOXITIN 1 GM in NA CHLORIDE 0.9% 50 ML IVPB SCH ×3 (13:10→23:41)
--- NOTE | 2021-10-24 22:27 | OP ---
Date of Procedure: 10/24/2021 Surgeon: Bipin Munguia MD Pricing Director: MEAGAN Duron. Preoperative Diagnosis: Incision of multiple incarcerated ventral hernia, history of gastric bypass. Postoperative Diagnosis: Incision of multiple incarcerated ventral hernia, history of gastric bypass , plus extensive intraabdominal adhesions. Procedures: 1.Laparoscopic repair of multiple incarcerated ventral hernias with mesh. 2.Extensive laparoscopic lysis of adhesions. Estimated Blood Loss: Less than 20 cc. Specimen: Multiple hernias. Findings: The patient has multiple hernias. He has an incision in the epigastric all the way to the umbilical area. They have 2 different hernias in that region, 1 epigastric, another 1 mid-ventral, and then he has another hernia that include the umbilical and lower ventral region. All of them have to be addressed at the same time with a laparoscopic and partially open approach. At the end of the case, even though his hernia was addressed individually, the mesh that we have, cover those hernias with at least 3-5 cm overlaps. The patient has in the epigastric hernia transverse colon, on the low er hernias mainly small bowel. All that transverse colon and small bowel were preserved with no inju ana maría and no enterotomies. The patient has intractable adhesions extensive, probably a part of his pr evious surgeries, all that have to be taken down in order for us to be able to fix his hernias. The falciform ligament also have to be mobilized in order for us to put the mesh nice and flat with adhes ions in that area also removed. The main plan is a Ventralight ST mesh with echo positioning system was about 20 x 15 cm. Complications: None. Indication: This is a case of a 61-year-old patient with multiple abdominal surgeries. He has histo ry of also gastric bypass and cholecystectomies, midline incision. He comes to us with multiple bronwyn ias, not only in the upper ventral region, multiple, but also in the periumbilical and inferior ventr al region. He is losing some weight. He is still working on that, but he has enough for him to want to have this repair since the hernias are bothering him and there is some bowel trying to go through them too. The benefits, alternatives, and risks of repair of multiple incarcerated ventral hernias with mesh fully explained, laparoscopic versus open, with benefits, alternatives, and risks including , but not limited to infection, bleeding, damage to adjacent structures as complication, have fistula s, bile leak, chronic pain, adhesions, ME, even . He also understands we might be using mesh in that region. Pros and cons of mesh were discussed with the patient and he signed a consent. Description Of Procedure: The patient was brought to the operating room, placed in supine position. Anesthesia was done without complication. Abdomen was prepped and draped in a sterile fashion. We have some of the hernias in the abdomen. We proceeded then to take the 1 in middle and make an incis ion in that region. The intention of that is not only to fix that hernia but also use that as access point to be able to enter into the abdomen and put the cameras on. So, we identified the hernia in this area. We have a small bowel with some adhesions. We carefully removed them and then cleaned th e fascia edges and placed Prolene #1 inside the fascia multiple times and holding tight. We had a Rocha sson trocar placed into it and then we were able to put the cameras in and obtain a pneumoperitoneum. There were extensive adhesions noted in the abdomen. In order for us to continue this, we have to take all these adhesions including the falciform ligament, since there is a hernia there too, from th e previous midline incision. So, at that moment, I proceeded to place a 5 mm trocar in the left and right of abdomen, and with the help of LigaSure, we proceeded to do this extensive lysis of adhesions . We spent about [id number] just doing those adhesions. We make sure we have no enterotomies, so we noticed when we have those adhesions down, there were multiple hernias in epigastric, mid ventral , periumbilical, and infraumbilical ventral regions. From the upper hernias, we noticed a transverse colon going through it that we carefully removed. After the adhesions were removed from the other h ernias, mainly small bowel, we were able to reduce that without any enterotomies. A falciform ligame nts have to be also mobilized. After we had that, we were able to close the fascia of the infraumbil ical area with #1 Prolene. The upper epigastric region, it is large enough because the patient has a n incision there already. I opened that area and put the stitches directly #1 Prolene, also mid vent ral hernia #1 Prolene, and the area where we have a trocar. We were able to close those areas. Then , we have just the access in the middle, where we have a trocar, and we selected a 15 x [address] mesh [address] that will cover that area with overlap of about 3-5 cm. After we make sure the hemostas is was done, make sure there was no bleeding from the lysis of adhesions and make sure there was no e nterotomies, then we put a mesh intraperitoneally. I inflated the balloon and it lies nice and flat against the abdominal wall. We proceeded then to carefully use SorbaFix to secure all the edges of t hat hernia mesh, then deflate the balloon and removed the balloon and then proceeded to secure the me sh circumferentially with SorbaFix and several devices to make sure that there was no gap in between that intestines can come through. After that, we checked once again for hemostasis, looking good. W e checked the area of lysis of adhesions, looking good. At that moment I proceeded to deflate the pn eumoperitoneum, closed the trocar site with #1 Prolene. We have several stitches there in figure-of- eight, like we did the rest of the hernias. Then, subcutaneous tissue closed with 3-0 chromic and th en the skin was approximated with lashaun. Sponge counts, instrument counts correct. The patient to lerated the procedure well. The patient was sent to recovery in stable condition. Due to the extens roland intraabdominal adhesions and also so many hernias that we had to repair and, I believe, this gaby ent will develop an ileus. This patient will require IV pain medication, so we talked to the patient . A decision was made to keep him under observation. AME/LIA Voice ID: [id number] Report ID: [id number]
[2021-10-25] MEDS: NA CHLORIDE 0.9% 1,000 ML IV SCH ×2 (01:18→06:41)
[2021-10-25 01:58] VITALS: O2SAT 96
[2021-10-25] MEDS: HYDROMORPHONE HCL 1 MG/ML INJ IV PRN ×3 (02:27→10:45)
[2021-10-25 06:16] LABS: Absolute Lymphocytes (CBC) 1.2 K/uL (0.7-4.9); Hematocrit 34.4 % (39.6-49.0); Lymphocytes % 17.1 % (15.3-44.8); MCV 89.5 fL (80-100); MPV 7.1 fL (7.6-11.3); RBC Red Blood Cell Count 3.84 M/uL (4.33-5.43)
[2021-10-25] MEDS ORDERED: PANTOPRAZOLE 40 MG INJ IVP SCH (09:00)
[2021-10-25 11:35] VITALS: BP 142/82; TEMP 97.4
--- NOTE | 2021-10-25 12:19 | P.DS ---
Admission Date: 10/24/21 Discharge Date: 10/25/21 Disposition: ROUTINE DISCHARGE Discharge Condition: GOOD Vital Signs/Physical Exam: Temp Pulse Resp BP Pulse Ox 97.4 F 76 16 142/82 H 96 10/25/21 11:34 10/25/21 11:34 10/25/21 11:34 10/25/21 11:34 10/25/21 11:34 General: Alert, Oriented x3 HEENT: PERRLA, EOMI Neck: Supple Cardiovascular: No edema Gastrointestinal: Soft and benign, No rebound, No guarding Musculoskeletal: No erythema, No tenderness Integumentary: No breakdown Neurological: Normal speech Laboratory Data at Discharge: WBC 6.80 K/uL (4.3-10.9) 10/25/21 06:02 Hgb 11.9 g/dL (13.6-17.9) L 10/25/21 06:02 Hct 34.4 % (39.6-49.0) L 10/25/21 06:02 Plt Count 215 K/uL (152-406) 10/25/21 06:02 Sodium 137 mmol/L (136-145) 10/25/21 06:02 Potassium 4.0 mmol/L (3.5-5.1) 10/25/21 06:02 BUN 11 mg/dL (7-18) 10/25/21 06:02 Creatinine 0.89 mg/dL (0.55-1.3) 10/25/21 06:02 Glucose 93 mg/dL (74-106) 10/25/21 06:02 Home Medications: Aspirin [Aspirin EC 81 MG] 81 mg PO DAILY 10/19/21 Loratadine [Claritin] 10 mg PO DAILY 10/19/21 Nebivolol HCl [Bystolic] 5 mg PO DAILY 10/19/21 Phentermine HCl 37.5 mg PO SEECOM 10/19/21 Pravastatin Sodium 40 mg PO DAILY 10/19/21 Semaglutide [Wegovy] 0.75 mg SQ EVERY 7TH DAY 10/19/21 Valsartan/Hydrochlorothiazide [Diovan Hct 320-12.5 mg Tab] 1 each PO DAILY 10/19/21 Physician Discharge Instructions: KEep area dry for 24h then may remove outer dressing and shower. Abdominal binder while out of bed. Diet: AHA Activity: No lifting more than 10 lbs Followup: NONE,NONE [Primary Care Provider] - 1 Week Bipin Munguia MD [ACTIVE - CAN ADMIT] - 1 Week
== END 2021-10-25 12:51 | disposition home or self-care (01) ==
LOC: OR 06:03 → 4TH 10:27
PROVIDERS: ADMIT Surgery; ATTEND Surgery
PROC: 0DNW4ZZ Release Peritoneum, Percutaneous Endoscopic Approach (ICD-10-PCS; 2021-10-24)
PROC: 0WUF4JZ Supplement Abdominal Wall with Synthetic Substitute, Percutaneous Endoscopic Approach (ICD-10-PCS; principal; 2021-10-24 07:30)
DX: K43.0 Incisional hernia with obstruction, without gangrene (principal); K66.0 Peritoneal adhesions (postprocedural) (postinfection); I10 Essential (primary) hypertension; Z98.84 Bariatric surgery status; Z79.82 Long term (current) use of aspirin; Z79.899 Other long term (current) drug therapy; Z90.49 Acquired absence of other specified parts of digestive tract; Z20.822 Contact with and (suspected) exposure to COVID-19
CPT/HCPCS: 93005; 85025 ×2; 80048 ×2; 36415 ×2; 88302; 71046; 97116; 97161; 94010; 87811; 49655; 49329; G0379; J2704; C9113; J2250; J3010 ×2; J1100; J1170 ×7; J7120; J7030 ×2; J0694 ×3; J2405 ×2; J0690; G0378 ×2

== ENCOUNTER 2022-07-31 07:00 | Day surgery (SDC) | payer OTHER ==
--- NOTE | 2022-07-22 15:43 | RAD REPORT ---
EXAM DESCRIPTION: RAD - Chest Pa And Lat (2 Views) - 07/22/2022 3:37 pm CLINICAL HISTORY: pre op for surgery Chest pain. COMPARISON: Chest Pa And Lat (2 Views) dated 10/19/2021 FINDINGS: There is a vague opacity in the left mid lung which is new since the prior study. The lung s are otherwise clear. The heart is normal in size. No displaced fractures. IMPRESSION: Vague left mid lung opacity warrants CT chest for followup assessment.
[2022-07-22 15:53] LABS: Potassium 3.9 mEq/L (3.5-5.1)
[2022-07-22 16:01] LABS: Absolute Lymphocytes (CBC) 1.2 K/uL (0.7-4.9); Hematocrit 39.9 % (39.6-49.0); Lymphocytes % 22.1 % (15.3-44.8); MCV 90.4 fL (80-100); MPV 7.2 fL (7.6-11.3); RBC Red Blood Cell Count 4.41 M/uL (4.33-5.43)
--- NOTE | 2022-07-23 13:49 | EKG ---
Test Date: 2022-07-22 Test Time: 15:24:02 Digital Marketer: MARK MEASUREMENT RESULTS: Intervals: Rate: 72 MD: 180 QRSD: 102 QT: 386 QTc: 422 [place]: P: 43 MD: 180 QRS: -27 T: 59 INTERPRETIVE STATEMENTS: Normal sinus rhythm Normal ECG Compared to ECG 10/19/2021 12:56:06 Left-axis deviation no longer present Myocardial infarct finding no longer present Electronically Signed On 07-23-22 13:48:15 CDT by Cristobal Car
[2022-07-31] MEDS ORDERED: Ringers Lactate 1,000 ML IV ONE (07:21)
[2022-07-31] MEDS ORDERED: propofoL 200 MG/20 ML VIAL IV ONE (09:07)
[2022-07-31] MEDS ORDERED: FENTANYL CITR 100 MCG/2 ML ONE (09:07)
[2022-07-31] MEDS ORDERED: ROCURONIUM 50 MG/5 ML VIAL IV ONE (09:07)
[2022-07-31] MEDS ORDERED: MIDAZOLAM HCL 2 MG/2 ML INJ ONE (09:07)
[2022-07-31] MEDS ORDERED: LIDOCAINE 1% MPF 30 ML VIAL ONE (09:08)
[2022-07-31] MEDS: CEFAZOLIN SODIUM 1 GM/VIAL ONE ×2 (09:16→09:27)
[2022-07-31] MEDS ORDERED: ONDANSETRON 4 MG/2 ML VIAL ONE (10:51)
[2022-07-31] MEDS ORDERED: GLYCOPYRROLATE 0.2 MG/ML SYR ONE (10:51)
[2022-07-31] MEDS ORDERED: dexAMETHasone 4 MG/ML VIAL ONE (10:51)
[2022-07-31] MEDS ORDERED: NEOSTIGMINE 1 MG/ML -10 ML VIAL ONE (10:51)
[2022-07-31] MEDS ORDERED: Mastisol Adhesive Liq ONE (10:54)
--- NOTE | 2022-07-31 11:07 | P.BOP ---
Preoperative diagnosis: Large tender reducuble right inguinal hernia Postoperative diagnosis: same Primary procedure: Laparoscopic repair of Large tender reducuble right inguinal hernia Estimated blood loss: <10cc Specimen: none Findings: as above Anesthesia: General Complications: None Implants: medium 3D mesh Transferred to: Recovery Room Condition: Good
[2022-07-31 11:29] VITALS: O2SAT 96
[2022-07-31] MEDS ORDERED: TAMSULOSIN 0.4 MG SR CAP ONE (12:17)
[2022-07-31] MEDS ORDERED: HYDROCODONE/APAP 5/325 MG TAB ONE (12:18)
[2022-07-31 12:30] VITALS: BP 131/83; TEMP 97
== END 2022-07-31 12:20 | disposition home or self-care (01) ==
LOC: OR 07:00
PROVIDERS: ATTEND Surgery
PROC: 0YU64JZ Supplement Left Inguinal Region with Synthetic Substitute, Percutaneous Endoscopic Approach (ICD-10-PCS; principal; 2022-07-31 09:15)
DX: K40.90 Unilateral inguinal hernia, without obstruction or gangrene, not specified as recurrent (principal)
CPT/HCPCS: 93005; 85025; 80048; 36415; 71046; 49650; J2704; J1100; J2710; J2001; J2250; J3010; J2405; J7120; J0690